=== PATIENT | female | born 1995 | race Caucasian/White ===

== ENCOUNTER → 2016-12-15 | Outpatient (CLI) | payer BC, MEDICAID ==
[~2016-12-15] MED LIST: ACET1TAB43 PO; CHOL200012 PO; FERR-84 PO; IBUP-1773 PO; IOHEXOL 350 MG/ML 100 ML (OMNIPAQUE 350) VIAL IV ONE; MAGN200T PO; MULT1CAP27 PO; NS 100 ML (IVPB) BAG IV ONE; PNV91TAB3 PO; POTA10CA43 PO
--- NOTE | 2016-12-15 16:23 | Diagnostic Imaging Report ---
PROCEDURE: CT abdomen and pelvis with contrast, rule out appendicitis. TECHNIQUE: Multiple contiguous axial images were obtained through the abdomen and pelvis after the administration of intravenous contrast. INDICATION: Right lower quadrant pain. Nausea. 100 mL of Omnipaque 350 is administered intravenously. FINDINGS: The lung bases appear clear. The liver, the gallbladder, the pancreas, and the adrenal glands appear unremarkable. The spleen is at the upper limits of normal in size. The kidneys have symmetric enhancement and contrast excretion with no hydronephrosis. The uterus and adnexa appear grossly unremarkable. There is a small amount of free pelvic fluid in the pelvis, however. There is no bowel obstruction. The proximal aspect of the appendix is seen. It is normal in caliber with no significant inflammation. The distal aspect of the appendix, however, is inseparable from the adjacent bowel loops and not well evaluated. Minimal prominence of mesenteric lymph nodes, however, is seen. The osseous structures demonstrate sacralization of the transverse processes of L5. IMPRESSION: 1. There is a small amount of fluid seen in the pelvis. 2. The proximal aspect of the appendix is seen and appears normal. Its distal aspect is inseparable from adjacent small bowel loop and therefore is not well evaluated. There is, however, no adjacent inflammatory changes or fluid collection. Correlate clinically. 3. Nonspecific minimally prominent right lower quadrant mesenteric lymph nodes. Dictated by: Dictated on workstation # [id number]
== END ==
LOC: RAD 15:12
PROVIDERS: ATTEND Internal Medicine
DX: R59.0 Localized enlarged lymph nodes (principal); R10.31 Right lower quadrant pain
CPT/HCPCS: 74177

== ENCOUNTER → 2019-06-17 | Outpatient (CLI) | payer BC ==
[~2019-06-17] MED LIST changes: -IOHEXOL 350 MG/ML 100 ML (OMNIPAQUE 350) VIAL IV ONE; -NS 100 ML (IVPB) BAG IV ONE
--- NOTE | 2019-06-17 12:52 | Diagnostic Imaging Report ---
PROCEDURE: US OB SINGLE FETUS <14 WKS. TECHNIQUE: Multiple real-time grayscale images were obtained over the gravid uterus in various projections. INDICATION: Vaginal bleeding for 8 hours. FINDINGS: There are two intrauterine gestational sacs containing poles consistent with twin . Twin A has crown-rump length measurement of 1.8 cm consistent with 8 weeks 3 days. heart rate was recorded at 181 BPM. Twin B demonstrates a crown-rump length measurement of 1.9 cm consistent with 8 weeks 3 days. Heart rate was recorded at 169 BPM. No dante-gestational sac hemorrhage is detected. There is a left adnexal cyst measuring approximately 3.1 cm in size. There is no free fluid. IMPRESSION: 1. Twin live intrauterine approximately 8 weeks 3 days. Estimated date of confinement sonographically is 01/24/2020. No complicating features are seen. Dictated by: Dictated on workstation # [id number]
== END ==
LOC: RAD 10:50
PROVIDERS: ATTEND Obstetrics & Gynecology
DX: O46.91 Antepartum hemorrhage, unspecified, first trimester (principal); Z3A.08 8 weeks gestation of pregnancy
CPT/HCPCS: 76801; 76802

== ENCOUNTER 2019-12-20 17:41 | Outpatient (CLI) | payer BC, MEDICAID ==
[2019-12-20] VITALS (10 sets, daily range): BP systolic 132–147; BP diastolic 87–97
[~2019-12-20] VITALS: Ht 167.7 cm; Wt 99.7 kg
--- NOTE | 2019-12-20 17:50 | NUR ---
BRANDI PUGH presented to unit via AMBULATORY from ED, accompanied by S/O, with c/o PRE ECLAMPSIA, HEADACHE, LIGHT SENSITIVITY @ 35 WKS GESTATION. BRANDI PUGH weighed, gowned, voided, and to bed. EFHM and TOCO applied, VS taken. BRANDI PUGH oriented to bed controls, call light, TV, heat, and A/C controls.
--- NOTE | 2019-12-20 18:15 | NUR ---
ASSESSMENT COMPLETED. DTRS SLIGHT BRISK BILATERALLY. STATES SAW DR. BUENROSTRO YESTERDAY FOR DR. SANDY. LABS DONE AND BP ELEVATED IN OFFICE. C/O HEADACHE SINCE 0900 YESTERDAY. 2+ PITTING EDEMA NOTED IN LOWER EXTREMITIES. NO OBVIOUS FACIAL SWELLING.
--- NOTE | 2019-12-20 18:31 | NUR ---
DR. SILVEIRA NOTIFIED OF PT'S ARRIVAL, TWIN AT 35 WEEKS 1 DAY, COMPLAINT OF HEADACHE, VS WITH ELEVATED BP, REACTIVE FHR TRACING, EDEMA AND SLIGHTLY BRISK DTRS.
[2019-12-20] MEDS ORDERED: ACET/BUTAL/CAFF (FIORICET) TAB PO ONE ×2 (18:45→19:01)
--- NOTE | 2019-12-20 18:45 | NUR ---
LAB NOTIFIED OF NEED TO DRAW BLOOD FOR LABS.
[2019-12-20 18:55] LABS: BILIRUBIN,URINE NEGATIVE (NEGATIVE); CLARITY,URINE CLEAR; COLOR,URINE YELLOW; GLUCOSE, URINE (UA) NEGATIVE (NEGATIVE); KETONES,URINE 1+ (NEGATIVE); LEUKOCYTE ESTERASE ,URINE 2+ (NEGATIVE); NITRITE,URINE NEGATIVE (NEGATIVE); PROTEIN,URINE TRACE (NEGATIVE)
[2019-12-20 19:03] LABS: BACTERIA,URINE MODERATE /HPF; SQUAMOUS EPITHELIAL CELL,UR 25-50 /HPF
--- NOTE | 2019-12-20 19:07 | NUR ---
FIORICET GIVEN P.O. PER DR. GIANG FOR C/O HEADACHE.
--- NOTE | 2019-12-20 19:10 | NUR ---
LAB HERE TO DRAW BLOOD.
[2019-12-20 19:25] LABS: BASOPHILS % (AUTO) 0 % (0-10); EOSINOPHILS # (AUTO) 0.2 10^3/uL (0.0-0.3); EOSINOPHILS % (AUTO) 2 % (0-10); HEMATOCRIT 34 % (35-52); LYMPHOCYTES # (AUTO) 1.9 X 10^3 (1.0-4.0); LYMPHOCYTES % (AUTO) 17 % (12-44); MEAN CORPUSCULAR HEMOGLOBIN 26 PG (25-34); MEAN CORPUSCULAR HGB CONC 32 G/DL (32-36); MEAN CORPUSCULAR VOLUME 81 FL (80-99); MEAN PLATELET VOLUME 10.4 FL (7.4-10.4); MONOCYTES # (AUTO) 0.7 X 10^3 (0.0-1.0); MONOCYTES % (AUTO) 6 % (0-12); NEUTROPHILS # (AUTO) 8.6 X 10^3 (1.8-7.8); NEUTROPHILS % (AUTO) 75 % (42-75); PLATELET COUNT 284 10^3/uL (130-400); RED CELL DISTRIBUTION WIDTH 17.5 % (10.0-14.5); WHITE BLOOD COUNT 11.5 10^3/uL (4.3-11.0)
[2019-12-20 19:36] LABS: CHLORIDE 109 MMOL/L (98-107)
[2019-12-20 19:37] LABS: POTASSIUM 3.6 MMOL/L (3.6-5.0); SODIUM 138 MMOL/L (135-145)
[2019-12-20 19:38] LABS: CALCIUM 8.7 MG/DL (8.5-10.1)
[2019-12-20 19:39] LABS: GLUCOSE 93 MG/DL (70-105); TOTAL PROTEIN 6.1 GM/DL (6.4-8.2)
[2019-12-20 19:40] LABS: CARBON DIOXIDE 21 MMOL/L (21-32)
[2019-12-20 19:41] LABS: BILIRUBIN,TOTAL 0.3 MG/DL (0.1-1.0)
[2019-12-20 19:42] LABS: ALKALINE PHOSPHATASE 118 U/L (40-136)
[2019-12-20 19:43] LABS: CREATININE SERUM 0.94 MG/DL (0.60-1.30); GFR ESTIMATED > 60
[2019-12-20 19:44] LABS: BUN/CREATININE RATIO 7
[2019-12-20 19:45] LABS: ALANINE AMINOTRANSFERASE 11 U/L (0-55)
[2019-12-20 19:46] LABS: URIC ACID 7.2 MG/DL (2.6-7.2)
[2019-12-20] MEDS ORDERED: ASCO-262 PO (20:06)
[2019-12-20] MEDS ORDERED: BUTA1CAP42 PO (20:09)
--- NOTE | 2019-12-20 20:20 | NUR ---
D/C instructions given & explained, again reviewed bedrest w/pt & instructed to call office Monday, pt. verbalized understanding & signed, copy of D/C to pt. Rx called to [facility] per pt's request. Pt. left [facility] via W/C per this RN & SO, to home via private vehicle.
--- NOTE | 2019-12-24 09:50 | Physician Query-Final Dx ---
Clinic Account Progress/Dx Physician Query: Please give diagnosis Please include # weeks gestation Date of Service Dec 20, 2019 at 17:41 JORDYN CALDWELL Dec 24, 2019 09:50
== END 2019-12-20 20:20 | disposition home or self-care (01) ==
LOC: WSo 17:41 → LDRP 17:41 → WSo 20:20
PROVIDERS: ATTEND Obstetrics & Gynecology
DX: Z34.90 Encounter for supervision of normal pregnancy, unspecified, unspecified trimester (principal); Z3A.00 Weeks of gestation of pregnancy not specified
CPT/HCPCS: 80053; 81000; 82570; 84156; 84550; 85025; 87088; G0463; 36415; 99213

== ENCOUNTER 2019-12-24 05:38 | Inpatient (IN) | payer BC, MEDICAID ==
[~2019-12-24] VITALS: Ht 167.7 cm; Wt 99.9 kg
[2019-12-24] VITALS (15 sets, daily range): BP systolic 0–186; BP diastolic 0–110
[~2019-12-24 05:38] MED LIST changes: +ASCO-262 PO; +BUTA1CAP42 PO
--- NOTE | 2019-12-24 05:47 | NUR ---
BRANDI PUGH presented to unit via wheelchair from ED, accompanied by s.o., with c/o CONTRACTIONS. BRANDI PUGH weighed, gowned, voided, and to bed. EFHM and TOCO applied, VS taken. BRANDI PUGH oriented to bed controls, call light, TV, heat, and A/C controls.
[2019-12-24 06:21] LABS: BILIRUBIN,URINE NEGATIVE (NEGATIVE); CLARITY,URINE SL CLOUDY; COLOR,URINE YELLOW; GLUCOSE, URINE (UA) NEGATIVE (NEGATIVE); KETONES,URINE NEGATIVE (NEGATIVE); LEUKOCYTE ESTERASE ,URINE 2+ (NEGATIVE); NITRITE,URINE NEGATIVE (NEGATIVE); PH,URINE 5.5 (5-9); PROTEIN,URINE 1+ (NEGATIVE)
[2019-12-24] MEDS ORDERED: LABETALOL 200 MG (NORMODYNE) TAB PO ONE ×2 (06:24→06:30)
[2019-12-24 06:47] LABS: RBC,URINE 0-2 /HPF
[2019-12-24 06:48] LABS: BACTERIA,URINE MODERATE /HPF; WBC,URINE 25-50 /HPF
[2019-12-24 07:07] LABS: BASOPHILS % (AUTO) 0 % (0-10); EOSINOPHILS # (AUTO) 0.3 10^3/uL (0.0-0.3); EOSINOPHILS % (AUTO) 2 % (0-10); HEMATOCRIT 32 % (35-52); HEMOGLOBIN 10.5 G/DL (11.5-16.0); LYMPHOCYTES # (AUTO) 2.4 X 10^3 (1.0-4.0); LYMPHOCYTES % (AUTO) 18 % (12-44); MEAN CORPUSCULAR HEMOGLOBIN 26 PG (25-34); MEAN CORPUSCULAR HGB CONC 32 G/DL (32-36); MEAN CORPUSCULAR VOLUME 80 FL (80-99); MEAN PLATELET VOLUME 10.8 FL (7.4-10.4); MONOCYTES # (AUTO) 0.8 X 10^3 (0.0-1.0); MONOCYTES % (AUTO) 6 % (0-12); NEUTROPHILS % (AUTO) 74 % (42-75); PLATELET COUNT 272 10^3/uL (130-400); RED CELL DISTRIBUTION WIDTH 17.1 % (10.0-14.5); WHITE BLOOD COUNT 13.5 10^3/uL (4.3-11.0)
[2019-12-24 07:28] LABS: ALANINE AMINOTRANSFERASE 12 U/L (0-55); ALKALINE PHOSPHATASE 126 U/L (40-136); BILIRUBIN,TOTAL 0.2 MG/DL (0.1-1.0); BUN/CREATININE RATIO 8; CALCIUM 8.6 MG/DL (8.5-10.1); CARBON DIOXIDE 17 MMOL/L (21-32); CHLORIDE 111 MMOL/L (98-107); CREATININE SERUM 0.73 MG/DL (0.60-1.30); GFR ESTIMATED > 60; GLUCOSE 82 MG/DL (70-105); POTASSIUM 3.4 MMOL/L (3.6-5.0); SODIUM 139 MMOL/L (135-145); TOTAL PROTEIN 6.2 GM/DL (6.4-8.2); URIC ACID 7.3 MG/DL (2.6-7.2)
[2019-12-24] MEDS: BETAMETHASONE ACE/NA PHOS 6 MG/ML (CELESTONE SOLUSPAN) IM SCH (09:16)
--- NOTE | 2019-12-24 09:27 | History & Physical-OB ---
OB - Chief Complaint & HPI Date/Time Date of Admission: Date of Admission: Date seen by a Provider: Dec 24, 2019 Time Seen by a Provider: 08:00 Chief Complaint/History OB-Reason for Admission/Chief: Hx : 2 Hx Para: 1 Expected Date of Delivery: Jan 23, 2020 Gestational Age in Weeks: 35 Gestational Age in Days: 5 Other reason for admission: Patient admitted for uterine contractions, WILKES, and BP of 180s/100s. She had a standing diagnosis of mild preE, but has met severe criteria at time of admission Admission Nurse Assessment Rev: Yes History of Labs GBS neg Allergies and Home Medications Allergies Coded Allergies: No Known Drug Allergies (Unverified , 04/04/11) Home Medications Ascorbate Calcium 500 Mg Tablet, 500 MG PO DAILY, (Reported) Butalbit/Acetamin/Caff/Codeine 1 Each Capsule, 1 EACH PO Q6H Prescribed by: ANGELIQUE ASTORGA on 12/20/192008 Ferrous Sulfate 325 Mg Tablet, 325 MG PO DAILY, (Reported) Pnv95/Ferrous Fumarate/FA 1 Each Tablet, 1 EACH PO DAILY, (Reported) Patient Home Medication List Home Medication List Reviewed: Yes OB - History Hx of Present Care: Yes Ultrasounds: Normal mid trimester US (twin gestation di-di) Obstetrical Complications: Pre-eclampsia, Other (Di/Di Twin gestation) Medical Complications: None Obstetrical History Hx : 2 Hx Para: 1 Hx Total # of Abortions (Spona: 0 Delivery History Hx Blood Disorders: No Adverse Rxn to Tranfusion: No Patient Past Medical History n/a Social History/Family History Alcohol Use: Denies Use Recreational Drug Use: No 2nd Hand Smoke Exposure: No Immunizations Hepatitis A: No Hepatitis B: No Tetanus Booster (TDap): Unknown OB - Admission Exam Physical Exam Vitals: Vital Signs 12/24/19 12/24/19 07:04 07:19 Temp 37.2 Pulse 83 Resp 18 B/P (MAP) 148/93 (111) Pulse Ox 98 O2 Delivery Room Air HEENT: NCAT Heart: Rhythm Normal Lungs: Clear Abdomen: Gravid Extremities: Normal Reflexes: Normal Cervical Dilatation: 1cm Effacement: 75% Station: -1 Membranes: Intact Heart Rate: 130's Accelerations: Accelerations Present Decelerations: No Decelerations Short Term Variability: Present Snf Variability: Average (6-25) Contractions on Admission: < 5 Minutes Apart Intensity: Mild Labs Laboratory Tests Test 12/24/19 06:00 12/24/19 07:03 Range/Units Urine Color YELLOW Urine Clarity SL CLOUDY Urine pH 5.5 5-9 Urine Specific [place] <=1.005 1.016-1.022 Urine Protein 35 H 6-12 MG/DL Urine Glucose (UA) NEGATIVE NEGATIVE Urine Ketones NEGATIVE NEGATIVE Urine Nitrite NEGATIVE NEGATIVE Urine Bilirubin NEGATIVE NEGATIVE Urine Urobilinogen 0.2 < = 1.0 MG/DL Urine Leukocyte Esterase 2+ H NEGATIVE Urine RBC (Auto) 1+ H NEGATIVE Urine RBC 0-2 /HPF Urine WBC 25-50 H /HPF Urine Squamous Epithelial Cells 10-25 H /HPF Urine Crystals NONE /LPF Urine Bacteria MODERATE H /HPF Urine Casts NONE /LPF Urine Mucus NEGATIVE /LPF Urine Culture Indicated YES Urine Creatinine 27 L 30-125 MG/DL Urine Protein/Creatinine Ratio 1.30 White Blood Count 13.5 H 4.3-11.0 10^3/uL Red Blood Count 4.04 L 4.35-5.85 10^6/uL Hemoglobin 10.5 L 11.5-16.0 G/DL Hematocrit 32 L 35-52 % Mean Corpuscular Volume 80 80-99 FL Mean Corpuscular Hemoglobin 26 25-34 PG Mean Corpuscular Hemoglobin Concent 32 32-36 G/DL Red Cell Distribution Width 17.1 H 10.0-14.5 % Platelet Count 272 130-400 10^3/uL Mean Platelet Volume 10.8 H 7.4-10.4 FL Neutrophils (%) (Auto) 74 42-75 % Lymphocytes (%) (Auto) 18 12-44 % Monocytes (%) (Auto) 6 0-12 % Eosinophils (%) (Auto) 2 0-10 % Basophils (%) (Auto) 0 0-10 % Neutrophils # (Auto) 10.0 H 1.8-7.8 X 10^3 Lymphocytes # (Auto) 2.4 1.0-4.0 X 10^3 Monocytes # (Auto) 0.8 0.0-1.0 X 10^3 Eosinophils # (Auto) 0.3 0.0-0.3 10^3/uL Basophils # (Auto) 0.0 0.0-0.1 10^3/uL Sodium Level 139 135-145 MMOL/L Potassium Level 3.4 L 3.6-5.0 MMOL/L Chloride Level 111 H 98-107 MMOL/L Carbon Dioxide Level 17 L 21-32 MMOL/L Anion Gap 11 5-14 MMOL/L Blood Urea Nitrogen 6 L 7-18 MG/DL Creatinine 0.73 0.60-1.30 MG/DL Estimat Glomerular Filtration Rate > 60 BUN/Creatinine Ratio 8 Glucose Level 82 70-105 MG/DL Uric Acid 7.3 H 2.6-7.2 MG/DL Calcium Level 8.6 8.5-10.1 MG/DL Corrected Calcium 9.4 8.5-10.1 MG/DL Total Bilirubin 0.2 0.1-1.0 MG/DL Aspartate Amino Transf (AST/SGOT) 20 5-34 U/L Alanine Aminotransferase (ALT/SGPT) 12 0-55 U/L Alkaline Phosphatase 126 40-136 U/L Total Protein 6.2 L 6.4-8.2 GM/DL Albumin 3.0 L 3.2-4.5 GM/DL OB - Assessment/Plan/Diagnosis Assessment Admission Dx 24 yo @ 35.5 Di Di Twin gestation Uterine contractions Severe PreE GBS neg Admission Status: Inpatient Order (span 2 midnights) Reason for Inpatient Admission: Severe Pre E at 35.5 weeks Plan Other Plan Admission with BMZ given. Labetalol 200 mg po given with good BP response Will continue to Monitor if stable will await delivery until 36 weeks or 48 hours BPP/ US ordered this AM- if WNL advance to regular diet. TD BUENROSTRO DO Dec 24, 2019 9:27 am
[2019-12-24] MEDS ORDERED: morphine INJ 10 MG/ML 1ML (SYR OR VIAL) ONE ×2 (10:14→18:47)
[2019-12-24] MEDS ORDERED: morphine INJ 10 MG/ML 1ML (SYR OR VIAL) IVP ONE ×2 (10:15→19:00)
--- NOTE | 2019-12-24 13:56 | Diagnostic Imaging Report ---
INDICATION: Check growth. TECHNIQUE: Multiple real-time grayscale images were obtained over the gravid uterus. COMPARISON: 06/17/2019. FINDINGS: The prior exam of 06/17/2019 noted twin living fetuses approximately 8 weeks 3 days gestation. On this exam, there are again twin living fetuses. Twin A is on the maternal right and in cephalic presentation while twin B is on the maternal left and also in cephalic presentation. heart motion for twin A was noted and a rate of 129 BPM is recorded. The heart rate for twin B is 134 BPM. There are no abnormalities identified. The placenta for twin A is posterior while placenta for twin B is posterior and to the left. There is no previa. Amniotic fluid volume is within normal limits. There is a membrane in place. The growth parameters are fairly uniform and have progressed as expected since the prior exam. Twin A does measure slightly larger than twin B. IMPRESSION: 1. There are twin living fetuses approximately 35 weeks 5 days gestation +/- 1 week. The EDC remains January 24, 2020. 2. There are no abnormalities identified. 3. The growth parameters have progressed as expected since the prior study. Biometrical measurements are as follows: Biparietal 8.71 cm, age 35 weeks 2 days. Head circumference 31.94 cm, age 36 weeks 0 days. Abdominal circumference 30.06 cm, age 34 weeks 1 days. Femur length 6.65 cm, age 34 weeks 2 days. Sonographic estimate age: 35 weeks 0 days. Sonographic estimated date of delivery: 01/28/20. Estimated Weight: 2420 gm (+/- 353 gm). LMP percentile: 17%. heart rate: 129 beats per minute. number: 1 of 2. Dictated by: Dictated on workstation # [id number]
[2019-12-24] MEDS: CATHETER FLUSH 10 ML SYR IV SCH (15:48)
[2019-12-24] MEDS ORDERED: D5 LR IV SOLUTION 1,000 ML IV ONE (18:48)
[2019-12-24] MEDS: D5 LR IV SOLUTION 1,000 ML IV SCH (18:56)
[2019-12-24] MEDS: LABETALOL 200 MG (NORMODYNE) TAB PO SCH (20:42)
[2019-12-25] VITALS (14 sets, daily range): BP systolic 116–147; BP diastolic 72–101
--- NOTE | 2019-12-25 08:00 | NUR ---
Dr Flores to bedside and reviewed plan of care with pt and mother.
--- OUTSIDE RECORDS SUMMARY | 2019-12-25 08:37 | XMS REPORT | CCD ---
Author Author Risa Sauceda D.O. Organization [facility] Address [address] [place] [address] Phone Care Team Providers Care Collections Curator Name Role Phone PP Unavailable CCM Unavailable Summary Purpose Interface Exchange Insurance Providers Payer name Policy type / Coverage type Covered democrat ID Effective Begin Date Effective End Date Blue Cross Blue Shield Blue Cross/Bl ue Shield [id number] Unknown Unk nown Family History Family History data not found Social History Social History Element Codes Description Effective Dates Tobacco history SNOMED CT: 904214203 Nonsmoker 01/12/2011 Allergies, Adverse Reactions, Alerts Substance Reaction Codes Entered Date Inactivated Date Status * NO KNOWN DRUG FARHAD RGIES Unknown 01/12/2011 No Inactive Date Active Past Medical History Illness Codes Condition Status Onset Date Resolved Date TEST-POSITIVE ICD-9: V72.42 Active 03/22/2012 Unknown ASTHMA NOS ICD-9: 493.90 Active 12/27/2011 Unknow n URINARY TRACT INFECTION ICD-9: 599.0 Active 10/05/2011 Unknown Acne ICD-9: 706.1 Active 01/12/2011 Unknow n ROUTINE CHILD HEALTH EXAM ICD-9: V20.2 Active 12/27 Unknown Problems Condition Codes Effectiv e Dates Condition Status TEST-POSITIVE ICD-9: V72.42 03/22/2012 Active ASTHMA NOS ICD-9: 493.90 12/27/2011 Active URINARY TRACT INFECTION ICD-9: 599.0 10/05/2011 Active Acne ICD-9: 706.1 01/12/2011 Active ROUTINE CHILD HEALTH EXAM ICD-9: V20.2 01/12/2011 Active Medications Medication Codes Instruc tions Start Date Stop Date Sta tus Fill Instructions Cleocin T 1 % Topica l Gel RxNorm: 537321 1 Application TOP BID 01/12/2011 02/10/2011 Inactive generic ok albuterol sulfate HF A 90 mcg/actuation Aerosol Inhaler RxNorm: 4429597 1 INH Q4H No Start Date Active Medication Administered No Medication Administered data Immunizations No Immunization data Assessments Condition Codes Effectiv e Dates TEST-POSITIVE ICD-9: V72.42 03/22/2012 ROUTINE CHILD HEALTH EXAM ICD-9: V20.2 12/27/2011 ASTHMA NOS ICD-9: 493.90 12/27/2011 URINARY TRACT INFECTION ICD-9: 599.0 10/05/2011 Acne ICD-9: 706.1 2010 Reason For Visit Reason For Visit Effective Dates Notes 03/22/2012 has had positive urine tests, wants to discuss options vs pill, LMP 02/01/12 Annual Checkup 12/27/2011 painful urination 10/05/2011 Annual Checkup 01/12/2011 Sports physical Results No Results data Review of Systems System Result Effective Dates Genitourinary/Nephrology 03/22/2012 Constitutional No fever 12/27/2011 Constitutional No recent illness 12/27/2011 Constitutional No weight gain/obesity 12/27/2011 Constitutional No weight loss 12/27/2011 Ears/Nose/Throat/Neck No headache 12/27/2011 Ears/Nose/Throat/Neck No nasal discharge 12/27/2011 Ears/Nose/Throat/Neck nasal allergies 12/27/2011 Ears/Nose/Throat/Neck sinus congestion 12/27/2011 Ears/Nose/Throat/Neck No taste change 12/27/2011 Ears/Nose/Throat/Neck No sore throat 12/27/2011 Cardiovascular No hypertension 12/27/2011 Cardiovascular No cardiac murmur 12/27/2011 Respiratory asthma 12/26 Respiratory No cough Gastrointestinal No abdominal pain 12/27/2011 Genitourinary/Nephrology No menstrua l irregularity 12/27/2011 Musculoskeletal No low back pain 12/27/2011 Musculoskeletal No bone pain 12/27/2011 Musculoskeletal No neck pain 12/27/2011 Dermatologic acne rosacea 12/27/2011 Neurologic No alteration of consciousness 12/27/2011 Neurologic No seizure Psychiatric No alcohol abuse 12/27/2011 Psychiatric No drug abuse 12/27/2011 Psychiatric No stress Psychiatric No depression 12/27/2011 Endocrine No diabetes mellitus type 1 12/27/2011 Endocrine No diabetes mellitus type 2 12/27/2011 Allergy/Immunology No food allergy 12/27/2011 Allergy/Immunology No angioedema 12/27/2011 Allergy/Immunology No anaphylactoid reaction 12/27/2011 Constitutional No fever 01/12/2011 Constitutional No recent illness 01/12/2011 Ears/Nose/Throat/Neck No headache 01/12/2011 Ears/Nose/Throat/Neck nasal allergies 01/12/2011 Ears/Nose/Throat/Neck No nasal discharge 01/12/2011 Ears/Nose/Throat/Neck No otalgia 01/12/2011 Ears/Nose/Throat/Neck No sore throat 01/12/2011 Cardiovascular No cardiac murmur 01/12/2011 Cardiovascular No hypertension 01/12/2011 Cardiovascular No syncope 01/12/2011 Respiratory No cigarette smoking 01/12/2011 Respiratory No cough Respiratory asthma 01/12 Gastrointestinal No diarrhea 01/12/2011 Gastrointestinal No constipation 01/12/2011 Gastrointestinal No abdominal pain 01/12/2011 Gastrointestinal No nausea 01/12/2011 Gastrointestinal No vomiting 01/12/2011 Genitourinary/Nephrology No menstrua l irregularity 01/12/2011 Musculoskeletal No back pain 01/12/2011 Musculoskeletal No low back pain 01/12/2011 Musculoskeletal No joint complaint 01/12/2011 Dermatologic acne vulgaris 01/12/2011 Neurologic No alteration of consciousness 01/12/2011 Psychiatric No anxiety 0 01/12/2011 Psychiatric No stress Psychiatric No depression 01/12/2011 Psychiatric No alcohol abuse 01/12/2011 Psychiatric No drug abuse 01/12/2011 Endocrine No diabetes mellitus type 1 01/12/2011 Endocrine No diabetes mellitus type 2 01/12/2011 Allergy/Immunology No anaphylactoid reaction 01/12/2011 Allergy/Immunology No angioedema 01/12/2011 Allergy/Immunology No food allergy 01/12/2011 Physical Exam Exam Name System Name It em Name Status Result Effective Dates Notes Full Exam - General Constitutional general appearance Overall: well nourished 03/22/2012 None Full Exam - General Constitutional general appearance Overall: well developed 03/22/2012 None Full Exam - General Constitutional general appearance Overall: in no acute distress 03/22/2012 None Full Exam - General Neurologic mental status Overall: alert 2 None Full Exam - General Neurologic mental status Overall: oriented 03/22/2012 None Full Exam - General Psychiatric mood and affect Overall: normal mood and affect 03/22/2012 None Full Exam - General Lymphatic neck nodes Overall: anterior cervical chain maryam ign 12/27/2011 None Full Exam - General Lymphatic neck nodes Overall: posterior cervical chain be nign 12/27/2011 None Full Exam - General Musculoskeletal head and neck Overall: head atraumatic 12/27/2011 None Full Exam - General Musculoskeletal head and neck Overall: cervical spine benign 12/27/2011 None Full Exam - General Musculoskeletal digits and nails Overall: no clubbing 12/27/2011 None Full Exam - General Musculoskeletal digits and nails Overall: digits benign 12/27/2011 None Full Exam - General Musculoskeletal right upper extremity Overall: right shoulder benign 12/27/2011 None Full Exam - General Musculoskeletal right upper extremity Overall: right elbow benign 12/27/2011 None Full Exam - General Musculoskeletal right upper extremity Overall: right wrist benign 12/27/2011 None Full Exam - General Musculoskeletal right upper extremity Overall: full strength in RUE 12/27/2011 None Full Exam - General Musculoskeletal right upper extremity Overall: normal RUE bulk and tone 12/27/2011 None Full Exam - General Musculoskeletal left upper extremity Overall: normal left shoulder 12/27/2011 None Full Exam - General Musculoskeletal left upper extremity Overall: normal left elbow 12/27/2011 None Full Exam - General Musculoskeletal left upper extremity Overall: normal left wrist 12/27/2011 None Full Exam - General Musculoskeletal left upper extremity Overall: full strength in LUE 12/27/2011 None Full Exam - General Musculoskeletal left upper extremity Overall: normal LUE bulk and tone 12/27/2011 None Full Exam - General Musculoskeletal right lower extremity Overall: right knee benign 12/27/2011 None Full Exam - General Musculoskeletal right lower extremity Overall: right ankle benign 12/27/2011 None Full Exam - General Musculoskeletal right lower extremity Overall: right foot benign 12/27/2011 None Full Exam - General Musculoskeletal right lower extremity Overall: full strength in RLE 12/27/2011 None Full Exam - General Musculoskeletal right lower extremity Overall: normal RLE bulk and tone 12/27/2011 None Full Exam - General Musculoskeletal left lower extremity Overall: left knee benign 12/27/2011 None Full Exam - General Musculoskeletal left lower extremity Overall: left ankle benign 12/27/2011 None Full Exam - General Musculoskeletal left lower extremity Overall: left foot benign 12/27/2011 None Full Exam - General Musculoskeletal left lower extremity Overall: full strength in LLE 12/27/2011 None Full Exam - General Musculoskeletal left lower extremity Overall: normal LLE bulk and tone 12/27/2011 None Full Exam - General Musculoskeletal spine, ribs and pelvis Overall: spine benign 12/27/2011 None Full Exam - General Musculoskeletal spine, ribs and pelvis Overall: right hip benign 12/27/2011 None Full Exam - General Musculoskeletal spine, ribs and pelvis Overall: left hip benign 12/27/2011 None Full Exam - General Musculoskeletal gait and station Overall: normal gait 12/27/2011 None Full Exam - General Musculoskeletal gait and station Overall: normal station 12/27/2011 None Full Exam - General Psychiatric orientation/consciousness Overall: oriented to person, place and time 12/27/2011 None Full Exam - General Neurologic cranial nerves Overall: cranial nerves 1-12 intact 12/27/2011 grossly intact (Cranial n erve 1 not tested) Full Exam - General Constitutional general appearance Overall: well nourished 12/27/2011 None Full Exam - General Constitutional general appearance Overall: well developed 12/27/2011 None Full Exam - General Constitutional general appearance Overall: in no acute distress 12/27/2011 None Full Exam - General Eyes conjunctiva/eyelids Overall: conjunctiva clear 12/27/2011 None Full Exam - General Eyes conjunctiva/eyelids Overall: cornea clear 12/27/2011 None Full Exam - General Eyes conjunctiva/eyelids Overall: eyelids normal 12/27/2011 None Full Exam - General Eyes pupils and irises Overall: pupils equal, round, reacti ve to light and accomodation 12/27/2011 None Full Exam - General Ears/Nose/Throat otoscopic exam Overall: external auditory canals clear 12/27/2011 None Full Exam - General Ears/Nose/Throat otoscopic exam Overall: tympanic membranes clear 12/27/2011 None Full Exam - General Ears/Nose/Throat lips/teeth/gingiva Overall: benign lips 12/27/2011 None Full Exam - General Ears/Nose/Throat lips/teeth/gingiva Overall: normal dentition 12/27/2011 None Full Exam - General Ears/Nose/Throat lips/teeth/gingiva Overall: benign gingiva 12/27/2011 None Full Exam - General Ears/Nose/Throat oral cavity/pharynx/larynx Overall: oropharyngeal mucosa clear 12/27/2011 None Full Exam - General Neck thyroid Overall: normal size None Full Exam - General Neck thyroid Overall: normal consistency 12/27/2011 None Full Exam - General Neck thyroid Overall: nontender 12/26 None Full Exam - General Respiratory auscultation Overall: breath sounds clear bilater ally 12/27/2011 None Full Exam - General Respiratory respiratory effort/rhythm Overall: no retractions 12/27/2011 None Full Exam - General Respiratory respiratory effort/rhythm Overall: normal rate 12/27/2011 None Full Exam - General Cardiovascular auscultation of heart Overall: regular rate 12/27/2011 None Full Exam - General Cardiovascular auscultation of heart Overall: normal heart sounds 12/27/2011 None Full Exam - General Cardiovascular auscultation of heart Overall: no murmurs 12/27/2011 sitting or supine Full Exam - General Abdomen abdominal exam Overall: no tenderness 12/27/2011 None Full Exam - General Abdomen abdominal exam Overall: soft 12/27/2011 None Full Exam - General Abdomen abdominal exam Overall: no masses 12/27/2011 None Full Exam - General Abdomen abdominal exam Overall: normal bowel sounds 12/27/2011 None Full Exam - General Constitutional general appearance Overall: well nourished 01/12/2011 None Full Exam - General Constitutional general appearance Overall: well developed 01/12/2011 None Full Exam - General Constitutional general appearance Overall: in no acute distress 01/12/2011 None Full Exam - General Eyes conjunctiva/eyelids Overall: conjunctiva clear 01/12/2011 None Full Exam - General Eyes conjunctiva/eyelids Overall: cornea clear 01/12/2011 None Full Exam - General Eyes conjunctiva/eyelids Overall: eyelids normal 01/12/2011 None Full Exam - General Eyes pupils and irises Overall: pupils equal, round, reacti ve to light and accomodation 01/12/2011 None Full Exam - General Ears/Nose/Throat otoscopic exam Overall: external auditory canals clear 01/12/2011 None Full Exam - General Ears/Nose/Throat otoscopic exam Overall: tympanic membranes clear 01/12/2011 None Full Exam - General Ears/Nose/Throat lips/teeth/gingiva Overall: benign lips 01/12/2011 None Full Exam - General Ears/Nose/Throat lips/teeth/gingiva Overall: normal dentition 01/12/2011 None Full Exam - General Ears/Nose/Throat lips/teeth/gingiva Overall: benign gingiva 01/12/2011 None Full Exam - General Ears/Nose/Throat oral cavity/pharynx/larynx Overall: oral mucosa clear 01/12/2011 None Full Exam - General Ears/Nose/Throat oral cavity/pharynx/larynx Overall: tonsils benign 01/12/2011 None Full Exam - General Ears/Nose/Throat oral cavity/pharynx/larynx Overall: oropharyngeal mucosa clear 01/12/2011 None Full Exam - General Neck thyroid Overall: normal size None Full Exam - General Neck thyroid Overall: normal consistency 01/12/2011 None Full Exam - General Neck thyroid Overall: nontender 01/12 None Full Exam - General Respiratory auscultation Overall: breath sounds clear bilater ally 01/12/2011 None Full Exam - General Respiratory respiratory effort/rhythm Overall: no retractions 01/12/2011 None Full Exam - General Respiratory respiratory effort/rhythm Overall: normal rate 01/12/2011 None Full Exam - General Cardiovascular auscultation of heart Overall: regular rate 01/12/2011 None Full Exam - General Cardiovascular auscultation of heart Overall: normal heart sounds 01/12/2011 None Full Exam - General Abdomen abdominal exam Overall: no tenderness 01/12/2011 None Full Exam - General Abdomen abdominal exam Overall: no masses 01/12/2011 None Full Exam - General Abdomen abdominal exam Overall: soft 01/12/2011 None Full Exam - General Abdomen abdominal exam Overall: normal bowel sounds 01/12/2011 None Full Exam - General Lymphatic neck nodes Overall: anterior cervical chain maryam ign 01/12/2011 None Full Exam - General Lymphatic neck nodes Overall: posterior cervical chain be nign 01/12/2011 None Full Exam - General Musculoskeletal head and neck Overall: head atraumatic 01/12/2011 None Full Exam - General Musculoskeletal digits and nails Overall: no clubbing 01/12/2011 None Full Exam - General Musculoskeletal right upper extremity Overall: right shoulder benign 01/12/2011 None Full Exam - General Musculoskeletal right upper extremity Overall: right elbow benign 01/12/2011 None Full Exam - General Musculoskeletal right upper extremity Overall: right wrist benign 01/12/2011 None Full Exam - General Musculoskeletal right upper extremity Overall: full strength in RUE 01/12/2011 None Full Exam - General Musculoskeletal right upper extremity Overall: normal RUE bulk and tone 01/12/2011 None Full Exam - General Musculoskeletal left upper extremity Overall: normal left shoulder 01/12/2011 None Full Exam - General Musculoskeletal left upper extremity Overall: normal left elbow 01/12/2011 None Full Exam - General Musculoskeletal left upper extremity Overall: normal left wrist 01/12/2011 None Full Exam - General Musculoskeletal left upper extremity Overall: full strength in LUE 01/12/2011 None Full Exam - General Musculoskeletal left upper extremity Overall: normal LUE bulk and tone 01/12/2011 None Full Exam - General Musculoskeletal right lower extremity Overall: right knee benign 01/12/2011 None Full Exam - General Musculoskeletal right lower extremity Overall: right ankle benign 01/12/2011 None Full Exam - General Musculoskeletal right lower extremity Overall: right foot benign 01/12/2011 None Full Exam - General Musculoskeletal right lower extremity Overall: full strength in RLE 01/12/2011 None Full Exam - General Musculoskeletal right lower extremity Overall: normal RLE bulk and tone 01/12/2011 None Full Exam - General Musculoskeletal left lower extremity Overall: left knee benign 01/12/2011 None Full Exam - General Musculoskeletal left lower extremity Overall: left ankle benign 01/12/2011 None Full Exam - General Musculoskeletal left lower extremity Overall: left foot benign 01/12/2011 None Full Exam - General Musculoskeletal left lower extremity Overall: full strength in LLE 01/12/2011 None Full Exam - General Musculoskeletal spine, ribs and pelvis Overall: good posture 01/12/2011 None Full Exam - General Musculoskeletal spine, ribs and pelvis Overall: spine benign 01/12/2011 None Full Exam - General Musculoskeletal spine, ribs and pelvis Overall: right hip benign 01/12/2011 None Full Exam - General Musculoskeletal spine, ribs and pelvis Overall: left hip benign 01/12/2011 None Full Exam - General Musculoskeletal gait and station Overall: normal gait 01/12/2011 None Full Exam - General Musculoskeletal gait and station Overall: normal station 01/12/2011 None Full Exam - General Integument inspection of skin Rash/Lesions: papule 01/12/2011 mild acne on face Full Exam - General Psychiatric orientation/consciousness Overall: oriented to person, place and time 01/12/2011 None Procedures Procedure Codes Date URINE CULTURE/ COLON Y COUNT CPT-4: 34509 10/05/2011 URINALYSIS NONAUTO W /O SCOPE CPT-4: 44759 10/05/2011 Vital Signs Date Vital 03/22/2012 Blood Pressure 1: 106/58 Code: 8480-6 BMI: 20.9 Code: 59305-5 Heart Rate 1: 84 bpm Height: 5'6" Respiratory Rate: 20 bpm Temperature: 36.8 (C ) / 98.2 (F) Weight: 130 lbs 12/27/2011 Blood Pressure 1: 118/64 Code: 8480-6 BMI: 21.2 Code: 11516-5 Heart Rate 1: 80 bpm Height: 5'6" Temperature: 36.6 (C ) / 97.8 (F) Weight: 132 lbs 01/12/2011 Blood Pressure 1: 112/62 Code: 8480-6 BMI: 21.6 Code: 36688-7 Heart Rate 1: 72 bpm Height: 5'5" Temperature: 36.8 (C ) / 98.3 (F) Weight: 130 lbs Functional Status No Functional Status data History of Present Illness Symptom Name Status Resu lt Effective Date Notes Annual Checkup Menstrual History last menstrual period 11-27-11 12/27/2011 None Annual Checkup Menstrual History regular menses 12/27/2011 None Annual Checkup Menstrual History normal flow 12/27/2011 None Annual Checkup Control none 12/27/2011 None Annual Checkup Sexual Activity is not sexually active 12/27/2011 None Annual Checkup Lifestyle no history of physical abuse 12/27/2011 None Annual Checkup Lifestyle no history of sexual abuse 12/27/2011 None Annual Checkup Lifestyle no history of verbal abuse 12/27/2011 None Annual Checkup Lifestyle regular seatbelt use 12/27/2011 None Annual Checkup Lifestyle family supportive of relationship 12/27/2011 None Annual Checkup Lifestyle satisfactory school experience 12/27/2011 None Annual Checkup Lifestyle satisfactory peer relationships 12/27/2011 None Annual Checkup Lifestyle normal amount of stress 12/27/2011 None Annual Checkup Nutrition and Exercise normal weight 12/27/2011 None Annual Checkup Nutrition and Exercise regular diet 12/27/2011 None Annual Checkup Nutrition and Exercise moderate exercise 12/27/2011 None Annual Checkup Reproductive System D evelopment normal development 12/27/2011 None Annual Checkup Reproductive System D evelopment normal genitalia 12/27/2011 None Annual Checkup Reproductive System D evelopment normal menarche 12/27/2011 None Annual Checkup Reproductive System D evelopment normal thelarche 12/27/2011 None dysuria Quality burning 10/05/2011 None dysuria Quality constant 10/05/2011 None dysuria Onset and Resolution sudden in onset 10/05/2011 None dysuria Onset of Symptom 2 days ago 10/05/2011 None Advance Directives No Advance Directive data Encounters Encounter Performer Loca tion Codes Date OFFICE/OUTPATIENT SIT EST Diagnosis: TEST-POSITIVE[ICD9: V72.42] Elizabeth ROSENTHAL [facility] CPT-4: 26684 03/22/2012 ([id number]) PREV VISIT E ST AGE 12-17 Diagnosis: ROUTINE CHILD HEALTH EXAM[ICD9: V20.2] Diagnosis: ASTHMA NOS[ICD9: 493.90] Elizabeth SAUCEDA [facility] CPT-4: 27153 12/27/2011 ([id number]) OFFICE/OUTPA TIENT VISIT EST Diagnosis: URINARY TRACT INFECTION[ICD9: 599.0] Elizabeth ROSENTHAL [facility] CPT-4: 67208 10/05/2011 PREV VISIT EST AGE 1 2-17 Diagnosis: ROUTINE CHILD HEALTH EXAM[ICD9: V20.2] Diagnosis: Acne[ICD9: 706.1] Elizabeth SAUCEDA [facility] CPT-4: 95289 01/12/2011 Plan of Care Planned Activity Notes C odes Status Date Visit Plan: Long discussion about k eeping baby, adopting, and --explained that there are risks both medically and emotionally with proceeding with Mom is not supportive of pt keeping baby Discussed going back to [place] and talking to counselor Explained that I do not know any doctor's that perform abortions and therefore cannot recommend anyone for this type of procedure 03/22/2012 [facility]ment: [facility] Sau[facility] [phone] [id number] 03/22/2012 Patient Education: Patient Medication Summary Completed 03/22/2012 Visit Plan: Pt. reports recent epis ode of wheezing last Monday at sports practice. Discussed use of inhaler as necessary. Discussed that when symptoms flare it is advisable to take a daily allergy med (otc is fine) Pt. to notify if symptoms worsen. Pt. "can't remember" when had last episode of racing heartbeat. Instructed to notify parents if symptoms return. Recommended Gardasil and Meningitis vaccine. 12/27/2011 Appointment: Janie Aguilera WPtel: [phone] [place], [place] [id number] 12/27/2011 Patient Education: Patient Medication Summary Completed 12/27/2011 Appointment: Elizabeth Sauceda WPtel: [phone] [place], [place] [id number] [place] [address] 10/05/2011 Patient Education: Patient Medication Summary Completed 10/05/2011 Visit Plan: mild acne. will use Kentrell ocin T and notify if no improvement. Discussed that may add Minocin if symptoms worsen or do not improve. No other concerns. 01/12/2011 Appointment: Janie Aguilera WPtel: [address] [place] [address] [facility] 01/12/2011 Patient Education: Patient Medication Summary Completed 01/12/2011 Instructions Comment . mild acne. will u se Cleocin T and notify if no improvement. Discussed that may add Minocin if symptoms worsen or do not improve. No other concerns. . Long discussion ab out keeping baby, adopting, and --explained that there are risks both medically and emotionally with proceeding with Mom is not supportive of pt keeping baby Discussed going back to [facility] and talking to counselor Explained that I do not know any doctor's that perform abortions and therefore cannot recommend anyone for this type of procedure . Pt. reports recent episode of wheezing last Monday at sports practice. Discussed use of inhaler as necessary. Discussed that when symptoms flare it is advisable to take a daily allergy med (otc is fine) Pt. to notify if symptoms worsen. Pt. "can't remember" when had last episode of racing heartbeat. Instructed to notify parents if symptoms return. Recommended Gardasil and Meningitis vaccine.
--- OUTSIDE RECORDS SUMMARY | 2019-12-25 08:38 | XMS REPORT | Continuity of Care Document ---
Author Organization Unknown Address Unknown Phone Unavailable Allergies Active Description Code Type Severity Reaction Onset Reported/Identified Relationship to Patient Clinical Status Yes No Known Drug Allergies [id number] Drug Allergy Unknown N/A 04/04/2011 Medications There is no data. Problems Date Dx Coded Attending Type Code Diagnosis Diagnosed By 04/04/2011 Ot 920 CONTUS ION FACE/SCALP/NCK 04/04/2011 Ot 959.01 HEA D INJURY, NOS 04/04/2011 Ot E000.8 OTH ER EXTERNAL CAUSE STATUS 04/04/2011 Ot E849.0 ACC IDENT IN HOME 04/04/2011 Ot E888.1 FAL L STRIKING OBJECT NEC 10/10/2013 MEE FELICIANO APRN V03.89 MENINGOCOCCAL DX 11/04/2015 ENIO VILLASENOR MD N Ot O60. 00 LABOR WITHOUT DELIVERY, UNSPECIF 11/04/2015 ENIO VILLASENOR MD N Ot O60. 03 LABOR WITHOUT DELIVERY, THIRD TR 11/04/2015 ENIO VILLASENOR MD N Ot Z3A. 00 WEEKS OF GESTATION OF NOT SPEC 11/04/2015 ENIO VILLASENOR MD Ot Z3A. 36 36 WEEKS GESTATION OF 11/10/2015 ENIO VILLASENOR MD N Ot O60. 00 LABOR WITHOUT DELIVERY, UNSPECIF 11/10/2015 ENIO VILLASENOR MD N Ot Z3A. 00 WEEKS OF GESTATION OF NOT SPEC 11/10/2015 ENIO VILLASENOR MD N Ot O60. 00 LABOR WITHOUT DELIVERY, UNSPECIF 11/10/2015 ENIO VILLASENOR MD N Ot Z3A. 00 WEEKS OF GESTATION OF NOT SPEC 11/10/2015 ENIO VILLASENOR MD N Ot O47. 03 FALSE LABOR BEFORE 37 COMPLETED WEEKS OF 11/10/2015 ENIO VILLASENOR MD N Ot Z3A. 36 36 WEEKS GESTATION OF 11/16/2015 HAMILTON MD, ENIO N Ot O47. 03 FALSE LABOR BEFORE 37 COMPLETED WEEKS OF 11/16/2015 HAMILTON HOGAN, ENIO N Ot Z3A. 36 36 WEEKS GESTATION OF 11/17/2015 DU YANEZ LACEY Woodrow Ot M54.5 LOW BACK PAIN 11/17/2015 DU YANEZ, LACEY C Ot O47.1 FALSE LABOR AT OR AFTER 37 COMPLETED WEE 11/17/2015 DU YANEZANAMARIAA C Ot O99.8 9 OTH DISEASES AND CONDITIONS COMPL PREG/C 11/17/2015 DU YANEZ LACEY C Ot Z3A.3 7 37 WEEKS GESTATION OF 11/18/2015 HAMILTON HOGAN, ENIO N Ot O47. 03 FALSE LABOR BEFORE 37 COMPLETED WEEKS OF 11/18/2015 HAMILTON HOGAN, ENIO N Ot Z3A. 36 36 WEEKS GESTATION OF 11/19/2015 DU YANEZ LACEY C Ot M54.5 LOW BACK PAIN 11/19/2015 DU YANEZ LACEY C Ot O47.1 FALSE LABOR AT OR AFTER 37 COMPLETED WEE 11/19/2015 SANDY LACEY C Ot O99.8 9 OTH DISEASES AND CONDITIONS COMPL PREG/C 11/19/2015 DU YANEZ LACEY C Ot Z3A.3 7 37 WEEKS GESTATION OF 11/28/2015 DU YANEZ LACEY C Ot O69.2XX0 LABOR AND DEL COMP BY [facility] CORD ENTANGLE, 11/28/2015 LACEY SANDY DO Ot Z23 ENCOUNTER FOR IMMUNIZATION 11/28/2015 LACEY SANDY DO Ot Z37.0 SINGLE LIVE 11/28/2015 LACEY SANDY DO Ot Z3A.3 9 39 WEEKS GESTATION OF 12/16/2016 JONEL LANIER DO Ot R10.31 RIGHT LOWER QUADRANT PAIN 12/16/2016 JONEL LANIER DO Ot R59.0 LOCALIZED ENLARGED LYMPH NODES 12/19/2016 JONEL LANIER DO Ot R10.31 RIGHT LOWER QUADRANT PAIN 12/19/2016 JONEL LANIER DO Ot R59.0 LOCALIZED ENLARGED LYMPH NODES 12/21/2016 JONEL LANIER DO Ot R10.31 RIGHT LOWER QUADRANT PAIN 12/21/2016 JONEL LANIER DO Ot R59.0 LOCALIZED ENLARGED LYMPH NODES 12/30/2016 JONEL LANIER DO Sofia Ot R10.31 RIGHT LOWER QUADRANT PAIN 12/30/2016 LANIER DO, JONEL Sofia Ot R59.0 LOCALIZED ENLARGED LYMPH NODES 05/22/2017 LANIER DO, JONEL Sofia Ot R10.31 RIGHT LOWER QUADRANT PAIN 05/22/2017 LANIER DO, JONEL Sofia Ot R59.0 LOCALIZED ENLARGED LYMPH NODES 06/19/2017 LANIER DO, JONEL Sofia Ot R10.31 RIGHT LOWER QUADRANT PAIN 06/19/2017 LANIER DO, JONEL Sofia Ot R59.0 LOCALIZED ENLARGED LYMPH NODES 07/18/2017 LANIER DO, JONEL Sofia Ot R10.31 RIGHT LOWER QUADRANT PAIN 07/18/2017 LANIER DO, JONEL Sofia Ot R59.0 LOCALIZED ENLARGED LYMPH NODES 06/26/2018 LANIER DO, JONEL Sofia Ot R10.31 RIGHT LOWER QUADRANT PAIN 06/26/2018 LANIER DO, JONEL Sofia Ot R59.0 LOCALIZED ENLARGED LYMPH NODES 11/28/2018 LANIER DO, JONEL Black Ot R10.31 RIGHT LOWER QUADRANT PAIN 11/28/2018 LANIER DO, JONEL Sofia Ot R59.0 LOCALIZED ENLARGED LYMPH NODES 11/28/2018 LANIER DO, JONEL Sofia Ot R10.31 RIGHT LOWER QUADRANT PAIN 11/28/2018 LANIER DO, JONEL Sofia Ot R59.0 LOCALIZED ENLARGED LYMPH NODES 11/30/2018 LANIER DO, JONEL Sofia Ot R10.31 RIGHT LOWER QUADRANT PAIN 11/30/2018 LANIER DO, JONEL Sofia Ot R59.0 LOCALIZED ENLARGED LYMPH NODES 04/24/2019 LANIER DO, JONEL Black Ot R10.31 RIGHT LOWER QUADRANT PAIN 04/24/2019 LANIER DO, JONEL Black Ot R59.0 LOCALIZED ENLARGED LYMPH NODES 04/24/2019 LANIER DO, JONEL Sofia Ot R10.31 RIGHT LOWER QUADRANT PAIN 04/24/2019 LANIER DO, JONEL Sofia Ot R59.0 LOCALIZED ENLARGED LYMPH NODES 04/24/2019 LANIER DO, JONEL Black Ot R10.31 RIGHT LOWER QUADRANT PAIN 04/24/2019 LANIER DO, JONEL Black Ot R59.0 LOCALIZED ENLARGED LYMPH NODES 05/31/2019 LANIER DO, JONEL Black Ot R10.31 RIGHT LOWER QUADRANT PAIN 05/31/2019 LANIER DO, JONEL Black Ot R59.0 LOCALIZED ENLARGED LYMPH NODES 06/19/2019 LACEY SANDY DO Ot O46.9 1 ANTEPARTUM HEMORRHAGE, UNSPECIFIED, FIRS 06/19/2019 LACEY SANDY DO Ot Z3A.0 8 8 WEEKS GESTATION OF 07/09/2019 LACEY SANDY DO Ot O46.9 1 ANTEPARTUM HEMORRHAGE, UNSPECIFIED, FIRS 07/09/2019 LACEY SANDY DO Ot Z3A.0 8 8 WEEKS GESTATION OF Procedures Code Description Performed [place] [address]YP DR DIAMOND OF AMNIOTIC FL, THERAP FROM POC 11/26/2015 [id number] DE LIVERY OF PRODUCTS OF CONCEPTION, EXTE 11/26/2015 Results Test Result Range Complete urinalysis with reflex to cultu re - 12/20/19 18:00 Urine color determination YELLOW NRG Urine clarity determination CLEAR NR G Urine pH measurement by test strip 7.0 5-9 Specific gravity of urine by test strip 1.010 1.016-1.022 Urine protein assay by test strip, semi-quantitative TRACE NEGATIVE Urine glucose detection by automated test strip NE GATIVE NEGATIVE Erythrocytes detection in urine sediment by light micr oscopy TRACE-I NEGATIVE Urine ketones detection by automated test strip 1+ NEGATIVE Urine nitrite detection by test strip NEGATIVE NEGATIVE Urine total bilirubin detection by test strip NEGA TIVE NEGATIVE Urine urobilinogen measurement by automated test strip (mass/volume) 0.2 mg/dL < = 1.0 Urine leukocyte esterase detection by dipstick 2+ NEGATIVE Automated urine sediment erythrocyte cou nt by microscopy (number/high power field) [HPF] NRG Automated urine sediment leukocyte count by microscopy (number/high power field) [HPF] NRG Bacteria detection in urine sediment by light microsco py MODERATE NRG Squamous epithelial cells detection in u rine sediment by light microscopy 25-50 NRG Crystals detection in urine sediment by light microsco py NONE NRG Casts detection in urine sediment by light microscopy NONE NRG Mucus detection in urine sediment by light microscopy NEGATIVE NRG Complete urinalysis with reflex to culture YES NRG Urine protein/creatinine mass ratio - 18:00 Urine protein measurement (mass/volume) 29 mg/dL 6-12 Urine creatinine measurement (mass/volume) 30 mg/d L 30-125 Urine protein/creatinine mass ratio 0.97 NRG Bacterial urine culture - 12/20/19 18:00 Bacterial urine culture 3 OR MORE NRG COLONY COUNT 40,000 CFU/ML NRG SUSCEPTIBILITY GRAM POSITIVES, SUGGESTING PROBABLE NRG MRSA SCREEN COLLECTION CONTAMINATION WITH SKIN JOCELYN RA NRG RAPID ID NO SUSCEPTIBILITY PERFORMED N RG Complete blood count (CBC) with automate d white blood cell (WBC) differential - 12/20/19 19:10 Blood leukocytes automated count (number/volume) 11.5 10*3/uL 4.3-11.0 Blood erythrocytes automated count (number/volume) 4.20 10*6/uL 4.35-5.85 Venous blood hemoglobin measurement (mass/volume) 11.0 g/dL 11.5-16.0 Blood hematocrit (volume fraction) 34 % 35-52 Automated erythrocyte mean corpuscular volume 81 [ foz_us] 80-99 Automated erythrocyte mean corpuscular h emoglobin (mass per erythrocyte) 26 pg 25-34 Automated erythrocyte mean corpuscular h emoglobin concentration measurement (mass/volume) 32 g/dL 32-36 Automated erythrocyte distribution width ratio 17. 5 % 10.0- 14.5 Automated blood platelet count (count/volume) 284 10*3/uL 130-400 Automated blood platelet mean volume measurement 10.4 [foz_us] 7.4-10.4 Automated blood neutrophils/100 leukocytes 75 % 42-75 Automated blood lymphocytes/100 leukocytes 17 % 12-44 Blood monocytes/100 leukocytes 6 % 0-12 Automated blood eosinophils/100 leukocytes 2 % 0-10 Automated blood basophils/100 leukocytes 0 % 0-10 Blood neutrophils automated count (number/volume) 8.6 10*3 1.8-7.8 Blood lymphocytes automated count (number/volume) 1.9 10*3 1.0-4.0 Blood monocytes automated count (number/volume) 0. 7 10*3 0.0-1.0 Automated eosinophil count 0.2 10*3/uL 0 .0-0.3 Automated blood basophil count (count/volume) 0.0 10*3/uL 0.0-0.1 Comprehensive metabolic panel - 12/20/19 19:10 Serum or plasma sodium measurement (moles/volume) 138 mmol/L 135-145 Serum or plasma potassium measurement (moles/volume) 3.6 mmol/L 3.6-5.0 Serum or plasma chloride measurement (moles/volume) 109 mmol/L 98-107 Carbon dioxide 21 mmol/L 21-32 Serum or plasma anion gap determination (moles/volume) 8 mmol/L 5-14 Serum or plasma urea nitrogen measurement (mass/volume ) 7 mg/dL 7-18 Serum or plasma creatinine measurement (mass/volume) 0.94 mg/dL 0.60-1.30 Serum or plasma urea nitrogen/creatinine mass ratio 7 NRG Serum or plasma creatinine measurement w ith calculation of estimated glomerular filtration rate > NRG Serum or plasma glucose measurement (mass/volume) 93 mg/dL 70-105 Serum or plasma calcium measurement (mass/volume) 8.7 mg/dL 8.5-10.1 Serum or plasma total bilirubin measurement (mass/volu me) 0.3 mg/dL 0.1-1.0 Serum or plasma alkaline phosphatase [place] surement (enzymatic activity/volume) 118 U/L 40-136 Serum or plasma aspartate aminotransfera se measurement (enzymatic activity/volume) 16 U/L 5-34 Serum or plasma alanine aminotransferase measurement (enzymatic activity/volume) 11 U/L 0-55 Serum or plasma protein measurement (mass/volume) 6.1 g/dL 6.4-8.2 Serum or plasma albumin measurement (mass/volume) 3.0 g/dL 3.2-4.5 CALCIUM CORRECTED 9.5 mg/dL 8.5-10.1 Serum or plasma uric acid measurement (m ass/volume) - 12/20/19 19:10 Serum or plasma uric acid measurement (mass/volume) 7.2 mg/dL 2.6-7.2 [id number] - 12/20/19 19:10 [id number] SPECIMEN AVAILABLE NRG Encounters ACCT No. Visit Date/Time Discharge Status Pt. Type Provider Facility Loc./Unit Complaint [id number] 10/10/2013 09:16:00 10/10/2013 23:59: 59 CLS Outpatient MEE FELICIANO APRN [id number] 06/15/2017 16:00:00 06/15/2017 23:59:5 9 CLS Outpatient TOMAS CALI [facility] [id number] 12/20/2019 17:41:00 020 20:20:00 DIS Outpatient ADAMARIS SILVEIRA DO [facility] PRE ECLAMPSIA,HEADACHE, LIGHT SENSITIVITY [id number] 06/17/2019 10:50:00 020 23:59:59 CLS Outpatient LACEY SANDY DO [facility] RAD VAGINAL BLEEDING AFTER FIRST TRIMESTER [id number] 12/15/2016 15:12:00 017 23:59:59 CLS Outpatient JONEL LANIER DO [facility] RAD RUQ PAIN [id number] 11/26/2015 07:03:00 016 14:40:00 DIS Inpatient LACEY SANDY DO [facility] LDRP INDUCTION [id number] 11/17/2015 21:15:00 016 23:21:00 DIS Outpatient LACEY SANDY DO [facility] CONTRACTIONS [id number] 11/10/2015 19:28:00 016 21:27:00 DIS Outpatient ENIO VILLASENOR MD [facility] BACK PAIN [id number] 11/04/2015 16:40:00 016 21:20:00 DIS Outpatient ENIO VILLASENOR MD [facility] BACK PAIN [id number] 04/04/2011 17:23:00 Document Registration
--- OUTSIDE RECORDS SUMMARY | 2019-12-25 08:38 | XMS REPORT ---
Author Author Risa PEPE Organization [facility] Address [address] [place] [address] Care Team Providers Care Washtub Worker Helper Name Role Phone SHAWN PEPE Unavailable PROBLEMS Type Condition ICD9-CM Code QRU08-DW Code Onset Dates Condition S tatus SNOMED Code Problem MENINGOCOCCAL DX V03.89 Active 235 [id number] ALLERGIES No Information ENCOUNTERS Encounter Location Date Diagnosis [place] [address] [address] [facility] [id number] [address] [place] [phone] May, Visit for TB skin test Z11.1 [place] [address] [address] [facility] [id number] [address] [place] [phone] September, [place] [id number] [facility] [id number] [address] [place] [phone] September, IMMUNIZATIONS No Known Immunizations SOCIAL HISTORY Never Assessed REASON FOR VISIT TB skin test--[facility] PLAN OF CARE Activity Details Follow Up 48-72 hours Reason: VITAL SIGNS MEDICATIONS Unknown Medications RESULTS No Results PROCEDURES Procedure Date Ordered Result Body Site TB INTRADERMAL 2017-06-15 N/A TB INTRADERMAL TEST Jun 15, 2017 INSTRUCTIONS MEDICATIONS ADMINISTERED No Known Medications
--- OUTSIDE RECORDS SUMMARY | 2019-12-25 08:38 | XMS REPORT ---
Author Author Risa Vega Organization [facility] Address [address] [place] [address] Care Team Providers Care Shelver Name Role Phone MEE Vega Unavailable PROBLEMS Type Condition ICD9-CM Code [id number] Code Onset Dates Condition S tatus SNOMED Code Problem MENINGOCOCCAL DX V03.89 Active 235 76365 ALLERGIES No Information ENCOUNTERS Encounter Location Date Diagnosis [place] [address] [phone] Feb, Encounter for immunization Z23 [place] [address] [phone] May, Visit for TB skin test Z11.1 [place] [address] [phone] September, [place] [address] [phone] September, IMMUNIZATIONS No Known Immunizations SOCIAL HISTORY Never Assessed REASON FOR VISIT PLAN OF CARE VITAL SIGNS MEDICATIONS Unknown Medications RESULTS No Results PROCEDURES No Known procedures INSTRUCTIONS MEDICATIONS ADMINISTERED No Known Medications
[2019-12-25] MEDS: D5 LR IV SOLUTION 1,000 ML IV SCH ×2 (09:27→19:34)
[2019-12-25] MEDS: LABETALOL 200 MG (NORMODYNE) TAB PO SCH ×2 (09:27→21:07)
[2019-12-25] MEDS: BETAMETHASONE ACE/NA PHOS 6 MG/ML (CELESTONE SOLUSPAN) IM SCH (09:29)
--- NOTE | 2019-12-25 16:52 | Progress Note ---
Standard Progress Note Progress Notes/Assess & Plan Date Seen by a Provider: Dec 25, 2019 Time Seen by a Provider: 07:55 Progress/Assessment & Plan Patient continues to do well. BP control is fairly good. Patient has not had string of contractions since yesterday and has not required further pain meds since yesterday. Will give regular diet today. Second dose of BMZ given this AM. Will plan for induction this evening with anticipation for vaginal delivery x 2. Vtx/Vtx presentation. NST: Reactive x 2 with rare contractions Vital Sign - Last 24 Hours 12/24/19 12/24/19 12/24/19 12/24/19 16:55 17:15 21:29 22:00 Temp 37.4 36.8 36.5 Pulse 93 100 110 Resp 18 18 18 B/P (MAP) 153/96 (115) 134/87 (103) 140/95 (110) O2 Delivery Room Air Room Air Room Air 12/25/19 12/25/19 12/25/19 12/25/19 00:45 02:40 05:15 08:15 Temp 36.5 36.7 36.2 36.8 Pulse 104 109 116 111 Resp 18 18 18 18 B/P (MAP) 133/88 (103) 129/78 (95) 118/75 (89) 143/98 (113) Pulse Ox 98 O2 Delivery Room Air Room Air Room Air Room Air 12/25/19 12/25/19 10:56 12:55 Pulse 109 103 Resp 18 18 B/P (MAP) 116/72 (87) 135/91 (106) O2 Delivery Room Air Room Air TD BUNEROSTRO DO Dec 25, 2019 4:52 pm
[2019-12-25] MEDS ORDERED: MISOPROSTOL 100 MCG (CYTOTEC) TAB PO NR (19:30)
[2019-12-25] MEDS: CATHETER FLUSH 10 ML SYR IV SCH ×3 (19:51→21:11)
[2019-12-25] MEDS ORDERED: LACTATED RINGERS 1,000 ML IV SCH (20:14)
[2019-12-25] MEDS ORDERED: TERBUTALINE INJ 1 MG/ML (BRETHINE) AMP SC PRN (20:15)
[2019-12-26] VITALS (36 sets, daily range): BP systolic 129–156; BP diastolic 73–99
[2019-12-26] MEDS ORDERED: HYDROmorphone 2 MG/ML VIAL (DILAUDID) IV ONE (01:45)
[2019-12-26] MEDS: D5 LR IV SOLUTION 1,000 ML IV SCH ×2 (03:17→15:06)
[2019-12-26] MEDS: ACETAMINOPHEN 500 MG TAB (TYLENOL) PO PRN ×2 (03:51→12:37)
[2019-12-26] MEDS: CATHETER FLUSH 10 ML SYR IV SCH (05:12)
[2019-12-26] MEDS: MISOPROSTOL 100 MCG (CYTOTEC) TAB PO SCH ×2 (05:12)
--- NOTE | 2019-12-26 08:12 | Progress Note ---
Standard Progress Note Progress Notes/Assess & Plan Date Seen by a Provider: Dec 26, 2019 Time Seen by a Provider: 08:00 Progress/Assessment & Plan Patient doing well this morning, cytotec dosing x 2 overnight. She is 3-4 cm/80/-1. BP stable 140s/90s. Having a headache but managed with tylenol. AROM performed on fetus A, clear fluid noted. Both fht reactive. Contractions q 2-3 min Vital Sign - Last 24 Hours 12/25/19 12/25/19 12/25/19 12/25/19 08:15 10:56 12:55 15:35 Temp 36.8 37.4 Pulse 111 109 103 103 Resp 18 18 18 18 B/P (MAP) 143/98 (113) 116/72 (87) 135/91 (106) 129/87 (101) Pulse Ox 98 O2 Delivery Room Air Room Air Room Air Room Air 12/25/19 12/25/19 12/25/19 12/25/19 18:05 19:33 19:39 20:00 Temp 36.4 Pulse 120 117 120 113 Resp 18 18 18 18 B/P (MAP) 138/83 (101) 144/101 (115) 147/96 (113) 138/87 (104) Pulse Ox 100 O2 Delivery Room Air Room Air Room Air Room Air 12/25/19 12/25/19 12/25/19 12/26/19 21:06 22:00 23:00 00:00 Temp 37.2 Pulse 108 103 120 111 Resp 18 18 18 18 B/P (MAP) 140/95 (110) 141/95 (110) 143/79 (100) 130/84 (99) Pulse Ox 100 O2 Delivery Room Air Room Air Room Air Room Air 12/26/19 12/26/19 12/26/19 12/26/19 01:00 02:00 03:00 04:00 Temp 36.9 Pulse 98 92 105 105 Resp 18 18 18 18 B/P (MAP) 133/80 (97) 135/85 (102) 129/75 (93) 142/88 (106) O2 Delivery Room Air Room Air Room Air Room Air 12/26/19 12/26/19 05:00 06:00 Temp 36.8 Pulse 88 104 Resp 18 18 B/P (MAP) 135/88 (104) 147/94 (111) O2 Delivery Room Air Room Air Intake and Output 12/25/19 12/25/19 12/26/19 15:00 23:00 07:00 Intake Total 1000 ml 1500 ml Balance 1000 ml 1500 ml TD BUENROSTRO DO Dec 26, 2019 08:12
--- NOTE | 2019-12-26 08:31 | NUR ---
anesthesia notified of pt's request for epidural placement.
[2019-12-26] MEDS ORDERED: fentaNYL 2 mcg/ml BUPIVA 0.125 100 ML ONE (09:00)
[2019-12-26] MEDS ORDERED: BUPIVACAINE 0.25% 30 ML (SENSORCAINE) VIAL ONE (09:02)
[2019-12-26] MEDS ORDERED: fentaNYL INJECTION 100 MCG/2 ML AMP ONE (09:03)
--- NOTE | 2019-12-26 09:08 | NUR ---
IRENE Palomo here for epidural placement. Procedure explained, consent reviewed and signed by anesthesia. Questions answered to patient's satisfaction. Time out taken to verify correct patient/procedure. 0911- Patient up to side of bed, assisted into sitting position. Betadine prep done x3 and sterile drape applied. 0916- Local done, see anesthesia record. 0923- Test dose given, see anesthesia record for drug and dosage. Epidural catheter secured in place. Epidural placement complete. 0927- Assisted back into bed, monitors adjusted. Epidural dosed, see anesthesia record. Epidural of Sufenta/Fentanyl @12cc/hr stated per pump. Patient tolerated procedure well.
[2019-12-26] MEDS ORDERED: LACTATED RINGERS 1,000 ML IV SCH (09:50)
[2019-12-26] MEDS ORDERED: NALOXONE 0.4 MG/ML 1 ML (NARCAN) VIAL IV PRN ×2 (10:00)
[2019-12-26] MEDS ORDERED: diphenhydrAMINE 50 MG/ML INJ (BENADRYL) IV PRN (10:00)
[2019-12-26] MEDS ORDERED: ONDANSETRON 4 MG/2 ML (SDV) Z0FRAN IV PRN (10:00)
[2019-12-26] MEDS ORDERED: METOCLOPRAMIDE INJ 10 MG/2 ML (REGLAN) IV PRN (10:00)
[2019-12-26] MEDS ORDERED: EPIDURAL (fentaNYL 2 MCG/ML BUPIVA 0.125%)100 ML BAG EPI PRN (10:00)
[2019-12-26] MEDS: LABETALOL 200 MG (NORMODYNE) TAB PO SCH ×2 (11:13→21:07)
[2019-12-26] MEDS ORDERED: OXYTOCIN PRE-MIX DRIP 1,000 ML IV ONE (11:31)
[2019-12-26] MEDS: OXYTOCIN PRE-MIX DRIP 500 ML IV SCH ×2 (11:56→12:33)
[2019-12-26] MEDS ORDERED: CARBOPROST (HEMABATE) 250 MCG/ML AMP IM ONE ×2 (11:57→15:15)
[2019-12-26] MEDS ORDERED: TETANUS,DIPTH,PERTUSS P/F (BOOSTRIX) 0.5 ML VIAL IM ONE (12:15)
[2019-12-26] MEDS ORDERED: DIBUCAINE (NUPERCAINAL) 1% OINT 30 GM TOP PRN (12:15)
[2019-12-26] MEDS ORDERED: HYDROcodone/APAP 5 MG/325 MG (LORTAB) TAB PO PRN (12:15)
[2019-12-26] MEDS ORDERED: WITCH HAZEL(TUCKS) 40 EA JAR TOP PRN (12:15)
[2019-12-26] MEDS ORDERED: BENZOCAINE/MENTHOL (DERMOPLAST) 60 ML CAN TP PRN (12:15)
[2019-12-26] MEDS ORDERED: MEASLES,MUMPS,RUBELLA 1 EA INJ SQ ONE (12:15)
--- NOTE | 2019-12-26 12:27 | OB Labor & Delivery Record ---
L&D History Date of Service Date of Service: Dec 26, 2019 History Expected Date of Delivery: Jan 23, 2020 Gestational Age in Weeks: 35 Hx : 2 Hx Para: 1 Complications Events: Routine care Operative Indications (Cesarea: N/A-Vaginal Delivery Intrapartal Events: None L&D Stage1 Stage One Onset of Labor - Date: Dec 26, 2019 Monitors and Tracing Monitor Mode: External Heart Rate: 125 Station: 0 Fci Variability: Average (6-10) Presentation: Vertex Vital Signs VS - Last 72 Hours, by Label 12/24/19 12/24/19 12/24/19 12/24/19 05:52 06:02 06:10 07:02 Temp 37.2 37.2 Pulse 98 90 89 82 Resp 18 18 18 18 B/P (MAP) 186/110 (135) 168/110 (129) 172/109 (130) Pulse Ox 0 98 98 98 O2 Delivery Room Air Room Air Room Air Room Air 12/24/19 12/24/19 12/24/19 12/24/19 07:04 07:19 07:35 08:00 Temp 37.2 37.2 Pulse 83 83 90 100 Resp 18 18 18 18 B/P (MAP) 148/93 (111) 140/93 (109) 131/86 (101) Pulse Ox 98 98 98 O2 Delivery Room Air Room Air Room Air Room Air 12/24/19 12/24/19 12/24/19 12/24/19 09:00 09:15 11:15 11:30 Temp 37.0 Pulse 90 88 Resp 18 18 B/P (MAP) 138/94 (109) 136/89 (105) O2 Delivery Room Air Room Air 12/24/19 12/24/19 12/24/19 12/24/19 13:15 15:15 16:55 17:15 Temp 37.3 37.4 Pulse 95 106 93 Resp 18 18 18 B/P (MAP) 142/97 (112) 137/87 (104) 153/96 (115) O2 Delivery Room Air Room Air Room Air 12/24/19 12/24/19 12/25/19 12/25/19 21:29 22:00 00:45 02:40 Temp 36.8 36.5 36.5 36.7 Pulse 100 110 104 109 Resp 18 18 18 18 B/P (MAP) 134/87 (103) 140/95 (110) 133/88 (103) 129/78 (95) O2 Delivery Room Air Room Air Room Air Room Air 12/25/19 12/25/19 12/25/19 12/25/19 05:15 08:15 10:56 12:55 Temp 36.2 36.8 Pulse 116 111 109 103 Resp 18 18 18 18 B/P (MAP) 118/75 (89) 143/98 (113) 116/72 (87) 135/91 (106) Pulse Ox 98 O2 Delivery Room Air Room Air Room Air Room Air 12/25/19 12/25/19 12/25/19 12/25/19 15:35 18:05 19:33 19:39 Temp 37.4 36.4 Pulse 103 120 117 120 Resp 18 18 18 18 B/P (MAP) 129/87 (101) 138/83 (101) 144/101 (115) 147/96 (113) Pulse Ox 100 O2 Delivery Room Air Room Air Room Air Room Air 12/25/19 12/25/19 12/25/19 12/25/19 20:00 21:06 22:00 23:00 Pulse 113 108 103 120 Resp 18 18 18 18 B/P (MAP) 138/87 (104) 140/95 (110) 141/95 (110) 143/79 (100) O2 Delivery Room Air Room Air Room Air Room Air 12/26/19 12/26/19 12/26/19 12/26/19 00:00 01:00 02:00 03:00 Temp 37.2 Pulse 111 98 92 105 Resp 18 18 18 18 B/P (MAP) 130/84 (99) 133/80 (97) 135/85 (102) 129/75 (93) Pulse Ox 100 O2 Delivery Room Air Room Air Room Air Room Air 12/26/19 12/26/19 12/26/19 12/26/19 04:00 05:00 06:00 08:00 Temp 36.9 36.8 36.9 Pulse 105 88 104 109 Resp 18 18 18 18 B/P (MAP) 142/88 (106) 135/88 (104) 147/94 (111) 142/90 (107) O2 Delivery Room Air Room Air Room Air Room Air 7/12/26/19 12/26/19 12/26/19 09:00 09:11 09:20 09:25 Temp 37.2 Pulse 110 122 121 116 Resp 18 18 18 B/P (MAP) 139/90 (106) 148/89 (108) 134/97 (109) 146/90 (108) Pulse Ox 98 97 98 O2 Delivery Room Air Room Air Room Air Room Air 12/26/19 12/26/19 12/26/19 12/26/19 09:30 09:35 09:40 09:45 Pulse 102 103 106 102 Resp 18 18 18 18 B/P (MAP) 139/90 (106) 140/90 (107) 139/87 (104) 144/85 (104) Pulse Ox 97 95 97 O2 Delivery Room Air Room Air Room Air Room Air 12/26/19 12/26/19 12/26/19 12/26/19 09:50 09:55 10:00 10:05 Pulse 104 113 113 103 Resp 18 18 18 18 B/P (MAP) 142/91 (108) 156/99 (118) 135/92 (106) 138/82 (100) Pulse Ox 97 97 97 96 O2 Delivery Room Air Room Air Room Air Room Air 12/26/19 12/26/19 12/26/19 12/26/19 10:10 10:15 10:30 10:45 Pulse 108 104 112 108 Resp 18 18 18 18 B/P (MAP) 139/86 (103) 142/85 (104) 138/91 (107) 149/93 (111) Pulse Ox 97 98 97 97 O2 Delivery Room Air Room Air Room Air Room Air Rupture of Membranes Spontaneous Ruture of Membrane: Yes Amniotic Membrane Rupture Time: 0751 Amniotic Membrane Fluid Desc.: Clear Vaginal Bleeding Description: Normal Show Induction/Anesthesia Epidural Cath Placement - Time: 09 L&D Stage2 Stage Two Stage II Date: Dec 26, 2019 Monitors and Tracing Monitor Mode: External Heart Rate: 125 Position: Right Occiput Anterior Presentation: Vertex Cord Descript/Complications Cord Vessel Description: 3 Vessels Complications Both infants born over intact perineum TOO. both left anterior shoulders. Baby B had a nuchal reduced x 1 at perineum. No lacerations Delivery Type Infant Delivery Method: Spontaneous Vaginal Anterior Shoulder: Left Episiotomy/Perineal Laceration Laceraction(s)/Extensions: Yes Condition of Delivery 1 minute Comment: 8 5 minute Comment: 9 Notes Live male infants apgars 8/9 for both. Weight A 5lbs 12 oz, B 4lbs 10 oz. Condition of Condition of Infant: Living Exam: No Observed Abnormalities Resuscitation Resuscitation: N/A - Spontaneous Resp L&D Stage3 Stage Three Stage III Date: Dec 26, 2019 Pictocin Pitocin Administration Comment: 30 mu wide open at delivery of placenta Hemabate 150 mg given due to residual atony which resolved immediately Placenta Delivery Placenta Delivery: Spontaneous Delivery Summary Summary Estimated blood loss (mL): 450 Attending at delivery: Td Buenrostro DO Condition of Delivery Examined: Cervix Examined, Uterus Explored Post Hemorrhage: No Condition of Mother stable Condition of Infant (s) stable TD BUENROSTRO DO Dec 26, 2019 12:27 pm
--- NOTE | 2019-12-26 13:40 | NUR ---
FF1/u. lt perfecto noted. dante-care offered. pt requesting to use BR. pt transferred to room 312 via w/c with s.o and Twin A @ side. 1345- assisted up to BR. voided without difficulty. pt voices urge to have BM. dante-care instructions reviewed verbalizes understanding.
[2019-12-26] MEDS ORDERED: CATHETER FLUSH 10 ML SYR IV SCH (14:00)
--- NOTE | 2019-12-26 15:56 | NUR ---
report given to DARYL Briceno.
--- NOTE | 2019-12-26 18:00 | NUR ---
Shower set up for pt at this time. Pt to shower independently. IV taped. Addendum: 12/26/19 at 1852 by PJ ARAUJO RN Pt pad leaked onto bed. Linens changed.
[2019-12-26] MEDS: IBUPROFEN 600 MG (MOTRIN) TAB PO SCH (18:19)
--- NOTE | 2019-12-26 19:30 | NUR ---
Pt done pumping at this time, BM taken to nsy, plan of care reviewed.
--- NOTE | 2019-12-26 20:00 | NUR ---
Pt ambulated to nsy to noel with infant.
--- NOTE | 2019-12-26 20:25 | NUR ---
Pt laying in bed on phone. Will return for assessment, vs and PO medications.
[2019-12-26] MEDS: DOCUSATE SODIUM 100 MG (COLACE) CAP PO SCH (21:07)
--- NOTE | 2019-12-26 22:10 | NUR ---
pt sitting in bed with s.o. and . denies needs.
[2019-12-27 00:18] VITALS: BP 119/68
--- NOTE | 2019-12-27 00:18 | NUR ---
Pt aroused for vs, fresh ice water given.
[2019-12-27] MEDS: IBUPROFEN 600 MG (MOTRIN) TAB PO SCH ×4 (00:26→18:56)
--- NOTE | 2019-12-27 02:30 | NUR ---
Pt resting with eyes closed.
[2019-12-27 04:00] VITALS: BP 120/70
[2019-12-27 05:56] LABS: BASOPHILS % (AUTO) 0 % (0-10); EOSINOPHILS % (AUTO) 0 % (0-10); HEMATOCRIT 29 % (35-52); HEMOGLOBIN 8.9 G/DL (11.5-16.0); LYMPHOCYTES # (AUTO) 2.6 X 10^3 (1.0-4.0); LYMPHOCYTES % (AUTO) 13 % (12-44); MEAN CORPUSCULAR HEMOGLOBIN 26 PG (25-34); MEAN CORPUSCULAR HGB CONC 31 G/DL (32-36); MEAN CORPUSCULAR VOLUME 82 FL (80-99); MEAN PLATELET VOLUME 10.6 FL (7.4-10.4); MONOCYTES # (AUTO) 1.5 X 10^3 (0.0-1.0); MONOCYTES % (AUTO) 8 % (0-12); NEUTROPHILS # (AUTO) 15.5 X 10^3 (1.8-7.8); NEUTROPHILS % (AUTO) 79 % (42-75); PLATELET COUNT 241 10^3/uL (130-400); RED CELL DISTRIBUTION WIDTH 17.6 % (10.0-14.5); WHITE BLOOD COUNT 19.6 10^3/uL (4.3-11.0)
--- NOTE | 2019-12-27 07:07 | Anesthesia-Regional Post-Op ---
Regional Patient Condition Mental Status: Alert, Oriented x3 Circulation: Same as Pre-Op Headache: Absent Sensation: Full Recovery Motor Block: Absent Post Op Complications Complications None Follow Up Care/Instructions Patient Instructions None needed. Anesthesia/Patient Condition Patient is doing well, no complaints, stable vital signs, no apparent adverse anesthesia problems. No complications reported per nursing. SASHA CHIANG CRNA Dec 27, 2019 07:07
--- NOTE | 2019-12-27 07:18 | Postpartum Progress Note ---
FLYNN GOODMAN,MED STUDENT 12/27/19 0718: Note Note Day # 1 Subjective: Patient is without complaints. Ambulating, voiding. Tolerating a regular diet without nausea or vomiting. Normal lochia. Pain is well controlled with oral pain medications. Blood pressure trending down. Continue to monitor. Objective: Physical Exam: General - Alert and oriented, no apparent distress Abdomen - Soft, appropriately tender to palpation, non-distended, fundus firm at umbilicus Extremities - no edema, negative German's bilaterally Assessment: Post- twin delivery day # 1, spontaneous vaginal delivery Acute blood loss anemia Pre-eclampsia Plan: Routine care. Encourage breast feeding. Encourage ambulation. Ferrous sulfate supplementation. Plan for discharge tomorrow. Vitals - Labs Vital Signs - I&O Vital Signs Date Time Temp Pulse Resp B/P (MAP) Pulse Ox O2 Delivery O2 Flow Rate FiO2 12/27/19 04:00 37.5 84 16 120/70 (87) 93 Room Air 12/27/19 00:18 37.6 92 18 119/68 (85) 94 Room Air 12/26/19 21:10 36.9 83 18 138/88 (105) Room Air 12/26/19 18:18 36.8 87 18 145/91 (109) Room Air 12/26/19 13:30 89 18 142/88 (106) Room Air 12/26/19 13:15 92 18 143/84 (103) Room Air 12/26/19 13:00 104 18 139/73 (95) Room Air 12/26/19 12:45 112 18 133/73 (93) Room Air 12/26/19 12:30 108 18 146/84 (104) Room Air 12/26/19 12:10 36.9 110 18 144/83 (103) Room Air 12/26/19 11:50 113 18 155/91 (112) Room Air 12/26/19 11:30 126 18 138/95 (109) Room Air 12/26/19 11:15 121 18 145/89 (107) 98 Room Air 12/26/19 11:00 121 18 145/89 (107) 98 Room Air 12/26/19 10:45 108 18 149/93 (111) 97 Room Air 12/26/19 10:30 112 18 138/91 (107) 97 Room Air 12/26/19 10:15 104 18 142/85 (104) 98 Room Air 12/26/19 10:10 108 18 139/86 (103) 97 Room Air 12/26/19 10:05 103 18 138/82 (100) 96 Room Air 12/26/19 10:00 113 18 135/92 (106) 97 Room Air 12/26/19 09:55 113 18 156/99 (118) 97 Room Air 12/26/19 09:50 104 18 142/91 (108) 97 Room Air 12/26/19 09:45 102 18 144/85 (104) 97 Room Air 12/26/19 09:40 106 18 139/87 (104) 95 Room Air 12/26/19 09:35 103 18 140/90 (107) 97 Room Air 12/26/19 09:30 102 18 139/90 (106) Room Air 12/26/19 09:25 37.2 116 18 146/90 (108) 98 Room Air 12/26/19 09:20 121 18 134/97 (109) 97 Room Air 12/26/19 09:11 122 148/89 (108) 98 Room Air 12/26/19 09:00 110 18 139/90 (106) Room Air 12/26/19 08:00 36.9 109 18 142/90 (107) Room Air Labs Laboratory Tests 12/27/19 05:45: White Blood Count 19.6H, Red Blood Count 3.48L, Hemoglobin 8.9L, Hematocrit 29L, Mean Corpuscular Volume 82, Mean Corpuscular Hemoglobin 26, Mean Corpuscular Hemoglobin Concent 31L, Red Cell Distribution Width 17.6H, Platelet Count 241, Mean Platelet Volume 10.6H, Neutrophils (%) (Auto) 79H, Lymphocytes (%) (Auto) 13, Monocytes (%) (Auto) 8, Eosinophils (%) (Auto) 0, Basophils (%) (Auto) 0, Neutrophils # (Auto) 15.5H, Lymphocytes # (Auto) 2.6, Monocytes # (Auto) 1.5H, Eosinophils # (Auto) 0.0, Basophils # (Auto) 0.0 TD BUENROSTRO DO 12/27/19 0730: Note Note Verification and Attestation of Medical Student E/M Service A medical student performed and documented this service in my presence. I reviewed and verified all information documented by the medical student and made modifications to such information, when appropriate. I personally performed the physical exam and medical decision making. Td Buenrostro, Dec 27, 2019,07:30 FLYNN GOODMAN,MED STUDENT Dec 27, 2019 07:18 TD BUENROSTRO DO Dec 27, 2019 07:30
[2019-12-27] MEDS ORDERED: DIBU30OI TOP (07:27)
[2019-12-27] MEDS ORDERED: DCS100C PO (07:27)
[2019-12-27] MEDS ORDERED: HYDR-3812 PO (07:27)
[2019-12-27] MEDS ORDERED: LABE200T7 PO (07:27)
[2019-12-27] MEDS ORDERED: IBUP-844 PO (07:27)
[2019-12-27] MEDS ORDERED: BENZ78AE2 TP (07:27)
--- NOTE | 2019-12-27 07:28 | Discharge Inst-Women's Service ---
Discharge Inst-Women's Serv Depart Medication/Instructions New, Converted or Re-Newed RX: RX on Chart Final Diagnosis PPD 2 NVD Twin gestation Problems Reviewed?: Yes Consults/Follow Up Additional Follow Up: Yes Orders/Referrals Dr. Buenrostro or Sarath in 6 weeks Activity Activity: Activity as Tolerated Driving Instructions: No Driving for 1 Week NO SMOKING: NO SMOKING Nothing Inside Vagina: No Douching, No Girard, No Tampons Diet Discharge Diet: No Restrictions Symptoms to Report to : Bleeding Excessive, Pain Increased, Fever Over 101 Degrees F, Vaginal Bleeding Increase, Questions/Concerns For Any Problems or Questions: Contact Your Physician TD BUENROSTRO DO Dec 27, 2019 07:28
[2019-12-27 08:59] VITALS: BP 154/94
[2019-12-27] MEDS: FERROUS SULF 325 MG (IRON) TAB PO SCH (09:00)
[2019-12-27] MEDS: DOCUSATE SODIUM 100 MG (COLACE) CAP PO SCH ×2 (09:00→21:10)
[2019-12-27] MEDS: LABETALOL 200 MG (NORMODYNE) TAB PO SCH ×2 (09:00→21:11)
[2019-12-27] MEDS: PRENATAL VITAMIN 1 EA TAB PO SCH (09:00)
[2019-12-27 12:15] VITALS: BP 130/78
[2019-12-27 21:10] VITALS: BP 135/84
[2019-12-28] MEDS: IBUPROFEN 600 MG (MOTRIN) TAB PO SCH ×2 (00:30→06:32)
[2019-12-28 04:18] VITALS: BP 149/89
--- NOTE | 2019-12-28 09:52 | Postpartum Progress Note ---
Note Note Day # 2 Subjective: Patient is without complaints. Ambulating, voiding. Tolerating a regular diet without nausea or vomiting. Normal lochia. Pain is well controlled with oral pain medications. . Denies WILKES, Change in vision, CP, SOB. Objective: Physical Exam: General - Alert and oriented, no apparent distress Abdomen - Soft, appropriately tender to palpation, non-distended, fundus firm at umbilicus Extremities - no edema, negative German's bilaterally Assessment: PPD2 Twin Severe PreE- BP stable on labetalol Acute blood loss anemia Plan: Routine care. Encourage breast feeding. Encourage ambulation. Ferrous sulfate supplementation. Plan for discharge today Vitals - Labs Vital Signs - I&O Vital Signs Date Time Temp Pulse Resp B/P (MAP) Pulse Ox O2 Delivery O2 Flow Rate FiO2 12/28/19 04:18 36.8 82 18 149/89 (109) 98 Room Air 12/27/19 21:10 37.0 76 18 135/84 (101) 98 Room Air 12/27/19 12:15 37.2 73 18 130/78 (95) 96 Room Air Labs Microbiology 12/24/19 Urine Culture - Final, Complete Gram Pos Mixed Bacterial Daxa YEAST TD BUENROSTRO DO Dec 28, 2019 09:52
[2019-12-28 10:10] VITALS: BP 142/87
[2019-12-28] MEDS: PRENATAL VITAMIN 1 EA TAB PO SCH (10:10)
[2019-12-28] MEDS: DOCUSATE SODIUM 100 MG (COLACE) CAP PO SCH (10:10)
[2019-12-28] MEDS: FERROUS SULF 325 MG (IRON) TAB PO SCH (10:10)
[2019-12-28] MEDS: LABETALOL 200 MG (NORMODYNE) TAB PO SCH (10:10)
== END 2019-12-28 11:10 | disposition home or self-care (01) | DRG 806 ==
LOC: WSo 05:38 → LDRP 05:40 → WSo 12-25 08:09 → LDRP 12-25 08:09
PROVIDERS: ADMIT Obstetrics & Gynecology; ATTEND Obstetrics & Gynecology
PROC: 10E0XZZ Delivery of Products of Conception, External Approach (ICD-10-PCS; principal; 2019-12-26)
DX: O14.14 Severe pre-eclampsia complicating childbirth (principal); D62 Acute posthemorrhagic anemia; Z37.2 Twins, both liveborn; O30.043 Twin pregnancy, dichorionic/diamniotic, third trimester; O69.81X2 Labor and delivery complicated by cord around neck, without compression, fetus 2; O90.81 Anemia of the puerperium; Z3A.35 35 weeks gestation of pregnancy
CPT/HCPCS: 36415; 76805; 76810; 80053; 81000; 82570; 84156; 84550; 85025; 86850; 86900; 86901; 87088; 99212

== ENCOUNTER 2021-07-10 22:06 | Emergency (ER) | payer BC, MEDICAID ==
[~2021-07-10] VITALS: Ht 170.2 cm; Wt 99.4 kg
[~2021-07-10 22:06] MED LIST changes: +ACHD5005 PO; +BENZ78AE5 TP; +DIBU30OI TOP; +DOCU-239 PO; +IBUP-844 PO; +LABE200T7 PO
[2021-07-10 22:29] LABS: BILIRUBIN,URINE NEGATIVE (NEGATIVE); CLARITY,URINE CLEAR; COLOR,URINE YELLOW; GLUCOSE, URINE (UA) NEGATIVE (NEGATIVE); KETONES,URINE NEGATIVE (NEGATIVE); LEUKOCYTE ESTERASE ,URINE TRACE (NEGATIVE); NITRITE,URINE NEGATIVE (NEGATIVE); PROTEIN,URINE NEGATIVE (NEGATIVE)
[2021-07-10 22:36] LABS: BACTERIA,URINE FEW /HPF
[2021-07-10 23:16] LABS: BASOPHILS # (AUTO) 0.1 10^3/uL (0.0-0.1); BASOPHILS % (AUTO) 0 % (0-10); EOSINOPHILS # (AUTO) 0.7 10^3/uL (0.0-0.3); EOSINOPHILS % (AUTO) 6 % (0-10); HEMATOCRIT 43 % (35-52); LYMPHOCYTES # (AUTO) 2.2 10^3/uL (1.0-4.0); LYMPHOCYTES % (AUTO) 18 % (12-44); MEAN CORPUSCULAR HEMOGLOBIN 28 pg (25-34); MEAN CORPUSCULAR HGB CONC 33 g/dL (32-36); MEAN CORPUSCULAR VOLUME 84 fL (80-99); MEAN PLATELET VOLUME 9.4 fL (9.0-12.2); MONOCYTES # (AUTO) 0.5 10^3/uL (0.0-1.0); MONOCYTES % (AUTO) 5 % (0-12); NEUTROPHILS # (AUTO) 8.4 10^3/uL (1.8-7.8); NEUTROPHILS % (AUTO) 71 % (42-75); PLATELET COUNT 328 10^3/uL (130-400); WHITE BLOOD COUNT 11.8 10^3/uL (4.3-11.0)
[2021-07-10 23:27] LABS: ALBUMIN 4.6 GM/DL (3.2-4.5); CHLORIDE 107 MMOL/L (98-107); POTASSIUM 3.9 MMOL/L (3.6-5.0); SODIUM 140 MMOL/L (135-145)
[2021-07-10 23:28] LABS: AMYLASE 58 U/L (25-125); CALCIUM 9.3 MG/DL (8.5-10.1)
[2021-07-10 23:29] LABS: GLUCOSE 105 MG/DL (70-105); TOTAL PROTEIN 7.8 GM/DL (6.4-8.2)
[2021-07-10 23:30] LABS: CARBON DIOXIDE 19 MMOL/L (21-32)
[2021-07-10 23:31] LABS: BILIRUBIN,TOTAL 0.2 MG/DL (0.1-1.0)
[2021-07-10 23:33] LABS: ALKALINE PHOSPHATASE 98 U/L (40-136); CREATININE SERUM 0.74 MG/DL (0.60-1.30); GFR ESTIMATED 115
[2021-07-10 23:34] LABS: BUN/CREATININE RATIO 12
[2021-07-10 23:36] LABS: ALANINE AMINOTRANSFERASE 32 U/L (0-55); LIPASE 12 U/L (8-78)
--- NOTE | 2021-07-10 23:40 | ED Abdominal Pain ---
General Chief Complaint: Abdominal/GI Problems Stated Complaint: ABD PAIN Nursing Triage Note: INTERMITTANT EPIGASTRIC PAIN AFTER EATING X1 WEEK. Source of Information: Patient History of Present Illness Date Seen by Provider: Jul 10, 2021 Time Seen by Provider: 23:00 Initial Comments PT ARRIVES VIA POV FROM HOME C/O NAUSEA/VOMITING AND EPIGASTRIC PAIN AFTER EATING FOR THE LAST WEEK--HAPPENS ALMOST EVERY TIME AFTER SHE EATS EPISODES LAST 1-2 HOURS EPISODE TONIGHT STARTED AROUND 2029, AND RESOLVED PRIOR TO ARRIVAL PT ATE A SANDWICH WITH SALAMI, CHEDDAR CHEESE AND MAYONNAISE AROUND 2000 TONIGHT. NOTHING ELSE TO EAT AND NOTHING TO DRINK TONIGHT. NO RADIATION OF PAIN PT VOMITED X 2 TONIGHT. NO NAUSEA NOW. NORMAL BM TODAY. NO DIARRHEA NO FEVER. NO URINARY SYMPTOMS NO COUGH OR SHORTNESS OF BREATH NO RECENT ILLNESS HAS NOT SOUGHT CARE UNTIL TONIGHT PAIN TONIGHT WAS WORSE THAN IT HAS BEEN, BUT DID NOT LAST ANY LONGER THAN OTHER EPISODES HAS NOT TAKEN ANYTHING FOR SYMPTOMS AT ANY TIME PT HAS NOT HAD COVID-19 OR FLU VACCINES LMP 1 WEEK AGO. NORMAL. NO CONTROL. NO CHRONIC ILLNESSES NO PRIOR GI OR ABDOMINAL PROBLEMS OR SURGERIES PT DOES NOT TAKE ANY MEDIATIONS BOTH HER MOTHER AND HER SISTER HAVE HAD THEIR GALLBLADDERS REMOVED. PCP: DR. LANIER Allergies and Home Medications Allergies Coded Allergies: No Known Drug Allergies (Unverified , 04/04/11) Patient Home Medication List Home Medication List Reviewed: Yes Hyoscyamine Sulfate (Levsin-Sl) 0.125 Mg Tab.subl, 0.25 MG SL Q4H Prescribed by: ELEAZAR SAEZ on 07/11/21215 Nitrofurantoin Monohyd/M-Cryst (Macrobid 100 mg Capsule) 100 Mg Capsule, 1 TAB PO BID Prescribed by: ELEAZAR SAEZ on 07/11/21216 Ondansetron (Ondansetron Odt) 4 Mg Tab.rapdis, 4 MG PO Q4H Prescribed by: ELEAZAR SAEZ on 07/11/21215 Pantoprazole Sodium (Protonix) 40 Mg Tablet.dr, 40 MG PO DAILY Prescribed by: ELEAZAR SAEZ on 07/11/21215 Discontinued Medications Ascorbate Calcium (Vitamin C) 500 Mg Tablet, 500 MG PO DAILY, (Reported) Discontinued Reason: No Longer Taking Entered as Reported by: ANGELIQUE ASTORGA on 12/20/192005 Last Action: Discontinued Benzocaine/Menthol (Dermoplast Pain Relieving Pearson) 78 Gm Aerosol, 56 ML TP UD PRN for PAIN- SEE INSTRUCTIONS Discontinued Reason: No Longer Taking Prescribed by: TD BUENROSTRO on 12/27/19726 Last Action: Discontinued Butalbit/Acetamin/Caff/Codeine (Fcuiar-Vbnvilmvsag-Elsf-Codein) 1 Each Capsule, 1 EACH PO Q6H Discontinued Reason: No Longer Taking Prescribed by: ANGELIQUE ASTORGA on 12/20/192008 Last Action: Discontinued Dibucaine (Dibucaine) 30 Gm Oint, 0 GM TOP UD PRN for PAIN- SEE INSTRUCTIONS Discontinued Reason: No Longer Taking Prescribed by: TD BUENROSTRO on 12/27/19726 Last Action: Discontinued Docusate Sodium (Dok) 100 Mg Capsule, 100 MG PO BID PRN for CONSTIPATION-1ST LINE Discontinued Reason: No Longer Taking Prescribed by: TD BUENROSTRO on 12/27/19726 Last Action: Discontinued Ferrous Sulfate (Iron) 325 Mg Tablet, 325 MG PO DAILY, (Reported) Discontinued Reason: No Longer Taking Entered as Reported by: MAYITO SHAHID on 11/04/151750 Last Action: Discontinued Hydrocodone/Acetaminophen (Hydrocodone-Acetamin 5-325 mg) 1 Each Tablet, 1 TAB PO Q4H PRN for PAIN-MODERATE (5-7) Discontinued Reason: No Longer Taking Prescribed by: TD BUENROSTRO on 12/27/19726 Last Action: Discontinued Ibuprofen (Ibu) 600 Mg Tablet, 600 MG PO Q6HR Discontinued Reason: No Longer Taking Prescribed by: TD BUENROSTRO on 12/27/19726 Last Action: Discontinued Labetalol HCl (Labetalol HCl) 200 Mg Tablet, 200 MG PO BID Discontinued Reason: No Longer Taking Prescribed by: TD BUENROSTRO on 12/27/19726 Last Action: Discontinued Pnv95/Ferrous Fumarate/FA ( Caplet) 1 Each Tablet, 1 EACH PO DAILY, (Reported) Discontinued Reason: No Longer Taking Entered as Reported by: MAYITO SHAHID on 11/04/151750 Last Action: Discontinued Review of Systems Review of Systems Constitutional: no symptoms reported EENTM: No Symptoms Reported Respiratory: No Symptoms Reported Cardiovascular: No Symptoms Reported Gastrointestinal: See HPI, Abdominal Pain; Denies Constipated, Denies Diarrhea; Nausea, Vomiting Genitourinary: No Symptoms Reported Musculoskeletal: no symptoms reported; No back pain Skin: no symptoms reported Psychiatric/Neurological: No Symptoms Reported Endocrine: No Symptoms Reported Hematologic/Lymphatic: No Symptoms Reported Past Yoilibg-Atjsnr-Mquyhw Hx Patient Social History Tobacco Use?: No Substance use?: No Alcohol Use?: Yes Alcohol Frequency: Rarely Pt feels they are or have been: No Immunizations Up To Date Tetanus Booster (TDap): Unknown PED Vaccines UTD: Yes Influenza Vaccine Up-to-Date: No; Not Current Seasonal Allergies Seasonal Allergies: Yes Past Medical History Surgery/Hospitalization HX: CELIAC DISEASE, PREECLAMPSIA Surgeries: Yes (wisdom teeth extraction) Respiratory: Yes (childhood) Asthma Currently Using CPAP: No Currently Using BIPAP: No Cardiac: No Neurological: No : No Last Menstrual Period: Jul 03, 2021 Reproductive Disorders: No Female Reproductive Disorders: Denies Sexually Transmitted Disease: No HIV/AIDS: No Genitourinary: No Gastrointestinal: No Musculoskeletal: No Endocrine: No HEENT: No Cancer: No Psychosocial: No Integumentary: Yes (alopecia) Blood Disorders: No Adverse Reaction/Blood Tranf: No Family Medical History Arthritis 19 MOTHER Asthma 19 FATHER Diabetes mellitus 19 FATHER Hypertension 19 FATHER Thyroid disease 19 MOTHER Physical Exam Vital Signs Vital Signs - First Documented 07/10/21 07/11/21 22:20 02:20 Temp 36.3 Pulse 97 Resp 16 B/P (MAP) 139/100 (113) Pulse Ox 99 O2 Delivery Room Air Capillary Refill : Less Than 3 Seconds Height/Weight/BMI Height: 5'5.50" Weight: 163lbs. 6.0oz. 74.299801ng; 34.00 BMI Method: General Appearance: WD/WN, no apparent distress, obese, other (DOES NOT APPEAR ILL OR TO BE IN ANY DISCOMFORT OR DISTRESS. SITTING -STYLE) HEENT: PERRL/EOMI; No scleral icterus (R), No scleral icterus (L) Neck: normal inspection Respiratory: normal breath sounds, no respiratory distress, no accessory muscle use Cardiovascular: regular rate, rhythm, no murmur Gastrointestinal: normal bowel sounds, soft, no organomegaly, no pulsatile mass, tenderness (MILD EPIGASTRIC TENDERNESS) Extremities: normal inspection Back: normal inspection, no CVA tenderness Neurologic/Psychiatric: thermocouple tester II-XII nml as tested, no motor/sensory deficits, alert, normal mood/affect, oriented x 3 Skin: normal color, warm/dry Progress/Results/Core Measures Results/Orders Lab Results Laboratory Tests Test 07/10/21 22:20 07/10/21 23:07 Range/Units Urine Color YELLOW Urine Clarity CLEAR Urine pH 7.0 5-9 Urine Specific Anderson 1.025 H 1.016-1.022 Urine Protein NEGATIVE NEGATIVE Urine Glucose (UA) NEGATIVE NEGATIVE Urine Ketones NEGATIVE NEGATIVE Urine Nitrite NEGATIVE NEGATIVE Urine Bilirubin NEGATIVE NEGATIVE Urine Urobilinogen 0.2 < = 1.0 MG/DL Urine Leukocyte Esterase TRACE H NEGATIVE Urine RBC (Auto) NEGATIVE NEGATIVE Urine RBC NONE /HPF Urine WBC 2-5 /HPF Urine Squamous Epithelial Cells 2-5 /HPF Urine Crystals NONE /LPF Urine Bacteria FEW H /HPF Urine Casts NONE /LPF Urine Mucus SMALL H /LPF Urine Culture Indicated YES White Blood Count 11.8 H 4.3-11.0 10^3/uL Red Blood Count 5.09 3.80-5.11 10^6/uL Hemoglobin 14.0 11.5-16.0 g/dL Hematocrit 43 35-52 % Mean Corpuscular Volume 84 80-99 fL Mean Corpuscular Hemoglobin 28 25-34 pg Mean Corpuscular Hemoglobin Concent 33 32-36 g/dL Red Cell Distribution Width 14.4 10.0-14.5 % Platelet Count 328 130-400 10^3/uL Mean Platelet Volume 9.4 9.0-12.2 fL Immature Granulocyte % (Auto) 0 % Neutrophils (%) (Auto) 71 42-75 % Lymphocytes (%) (Auto) 18 12-44 % Monocytes (%) (Auto) 5 0-12 % Eosinophils (%) (Auto) 6 0-10 % Basophils (%) (Auto) 0 0-10 % Neutrophils # (Auto) 8.4 H 1.8-7.8 10^3/uL Lymphocytes # (Auto) 2.2 1.0-4.0 10^3/uL Monocytes # (Auto) 0.5 0.0-1.0 10^3/uL Eosinophils # (Auto) 0.7 H 0.0-0.3 10^3/uL Basophils # (Auto) 0.1 0.0-0.1 10^3/uL Immature Granulocyte # (Auto) 0.0 0.0-0.1 10^3/uL Sodium Level 140 135-145 MMOL/L Potassium Level 3.9 3.6-5.0 MMOL/L Chloride Level 107 98-107 MMOL/L Carbon Dioxide Level 19 L 21-32 MMOL/L Anion Gap 14 5-14 MMOL/L Blood Urea Nitrogen 9 7-18 MG/DL Creatinine 0.74 0.60-1.30 MG/DL Estimat Glomerular Filtration Rate 115 BUN/Creatinine Ratio 12 Glucose Level 105 70-105 MG/DL Calcium Level 9.3 8.5-10.1 MG/DL Corrected Calcium 8.5-10.1 MG/DL Total Bilirubin 0.2 0.1-1.0 MG/DL Aspartate Amino Transf (AST/SGOT) 20 5-34 U/L Alanine Aminotransferase (ALT/SGPT) 32 0-55 U/L Alkaline Phosphatase 98 40-136 U/L Total Protein 7.8 6.4-8.2 GM/DL Albumin 4.6 H 3.2-4.5 GM/DL Amylase Level 58 25-125 U/L Lipase 12 8-78 U/L My Orders Orders - ELEAZAR SAEZ DO Ed Iv/Invasive Line Start (07/10/21 23:03) Amylase (07/10/21 23:03) Cbc With Automated Diff (07/10/21 23:03) Comprehensive Metabolic Panel (07/10/21 23:03) Lipase (07/10/21 23:03) Ct Abdomen/Pelvis W (07/11/21 23:03) Iohexol Injection (Omnipaque 350 Mg/Ml 1 (07/11/21 00:15) Received Contrast (Hold Metformin- Contr (07/11/21 00:15) Ns (Ivpb) (Sodium Chloride 0.9% Ivpb Bag (07/11/21 00:15) Medications Given in ED Current Medications Medications Dose Ordered Sig/Sonia Route Start Time Stop Time Status Last Admin Dose Admin Iohexol 100 ml ONCE ONCE IV 07/11/21 00:15 07/11/21 00:16 DC 07/11/21 00:25 100 ML Sodium Chloride 100 ml ONCE ONCE IV 07/11/21 00:15 07/11/21 00:16 DC 07/11/21 00:25 80 ML Vital Signs/I&O 07/10/21 07/11/21 22:20 02:20 Temp 36.3 36.4 Pulse 97 88 Resp 16 16 B/P (MAP) 139/100 (113) 115/71 Pulse Ox 99 O2 Delivery Room Air Room Air Blood Pressure Mean: 113 Progress Progress Note : Progress Note NO SYMPTOMS OF ANY KIND DURING ER STAY MARKED DELAY IN OBTAINING CT REPORTS. Diagnostic Imaging Comments CT ABDOMEN/PELVIS--NO ACUTE PROCESS, PER [facility] VIA FAX AT 0210 Reviewed: Reviewed by Me Departure Impression Primary Impression: Intermittent epigastric abdominal pain Additional Impression: Urinary tract infection Disposition: HOME, SELF-CARE Condition: Stable Departure-Patient Inst. Decision time for Depature: 02:15 Referrals: MEHRAN BURNETTE WILLIAM J DO (PCP/Family) Primary Care Physician Patient Instructions: Abdominal Pain, Adult ED, Urinary Tract Infection, Adult (DC) Add. Discharge Instructions: CLEAR LIQUIDS--WATER, BROTH, JELLO, GATORADE BRATS DIET--BANANAS, RICE, APPLESAUCE, TOAST, SALTINES FOLLOW UP WITH YOUR FAMILY OR WITH DR. BURNETTE, SURGEON, NEXT WEEK FOR FURTHER CARE All discharge instructions reviewed with patient and/or family. Voiced understanding. Scripts Nitrofurantoin Monohyd/M-Cryst (Macrobid 100 mg Capsule) 100 Mg Capsule 1 TAB PO BID, #20 CAP Prov: ELEAZAR SAEZ DO 07/11/21 Hyoscyamine Sulfate (Levsin-Sl) 0.125 Mg Tab.subl 0.25 MG SL Q4H, #15 TAB Prov: ELEAZAR SAEZ DO 07/11/21 Ondansetron (Ondansetron Odt) 4 Mg Tab.rapdis 4 MG PO Q4H for Nausea/Vomiting, #10 TAB Prov: ELEAZAR SAEZ DO 07/11/21 Pantoprazole Sodium (Protonix) 40 Mg Tablet.dr 40 MG PO DAILY, #15 TAB Prov: ELEAZAR SAEZ DO 07/11/21 ELEAZAR SAEZ DO Jul 10, 2021 23:40
[2021-07-11] MEDS ORDERED: HOLD METFORMIN - RECEIVED CONTRAST 20 ML VIAL IV SCH (00:15)
[2021-07-11] MEDS ORDERED: IOHEXOL 350 MG/ML 100 ML (OMNIPAQUE 350) VIAL IV ONE (00:15)
[2021-07-11] MEDS ORDERED: NS 100 ML (IVPB) BAG IV ONE (00:15)
[2021-07-11] MEDS ORDERED: PANT40TA2 PO (02:16)
[2021-07-11] MEDS ORDERED: ONDA4TAB11 PO (02:16)
[2021-07-11] MEDS ORDERED: HYOS0.1283 SL (02:16)
[2021-07-11] MEDS ORDERED: NITR-65 PO (02:17)
[2021-07-11 02:20] VITALS: BP 115/71
--- NOTE | 2021-07-11 06:06 | Diagnostic Imaging Report ---
PROCEDURE: CT abdomen and pelvis with contrast. TECHNIQUE: Multiple contiguous axial images were obtained through the abdomen and pelvis after administration of intravenous contrast. Auto Exposure Controls were utilized during the CT exam to meet ALARA standards for radiation dose reduction. All CT scans use one or more of the following dose optimizing techniques: automated exposure control, MA and/or KvP adjustment based on patient size and exam type or iterative reconstruction. INDICATION: Epigastric pain COMPARISON: 12/15/2016 FINDINGS: The visualized lung bases are clear. Decreased density is noted throughout the liver. The liver is otherwise unremarkable. The spleen is borderline enlarged measuring just under 14 cm. The adrenal glands are unremarkable. The pancreas is unremarkable. The gallbladder is unremarkable. Early excretion of contrast noted within the bilateral kidneys. The bilateral kidneys and ureters are otherwise unremarkable. No aneurysmal dilatation of the abdominal aorta. The appendix is unremarkable. The urinary bladder is grossly unremarkable. The uterus and adnexal structures are unremarkable for age. No bowel obstruction or pneumatosis. No significant adenopathy, free air, or free fluid. No acute osseous abnormality. IMPRESSION: Borderline splenomegaly without discrete mass lesion. Fatty infiltration of the liver. Additional findings as above. Agree with preliminary interpretation. Dictated by: Dictated on workstation # [id number]
== END 2021-07-11 02:20 | disposition home or self-care (01) ==
LOC: EDUNIT# 22:06 → ER 22:10
DX: N39.0 Urinary tract infection, site not specified (principal); J45.909 Unspecified asthma, uncomplicated; E66.9 Obesity, unspecified; Z68.34 Body mass index [BMI] 34.0-34.9, adult
CPT/HCPCS: 36415; 74177; 80053; 81000; 82150; 83690; 84703; 85025; 87088

== ENCOUNTER → 2021-07-13 | Outpatient (CLI) | payer BC, MEDICAID ==
[~2021-07-13] MED LIST changes: +HYOS0.1283 SL; +NITR-65 PO; +ONDA4TAB11 PO; +PANT40TA2 PO
--- NOTE | 2021-07-13 15:51 | Diagnostic Imaging Report ---
PROCEDURE: US Gallbladder. TECHNIQUE: Multiple real-time grayscale images were obtained over the right upper quadrant in various projections. INDICATION: Right upper quadrant pain. FINDINGS: There are no prior gallbladder ultrasound examinations available for comparison. The recent CT abdomen/pelvis exam of 07/11/2021 failed to show any abnormality of the gallbladder. There was fatty infiltration of the liver as well as borderline splenomegaly noted on the CT exam. On this study, there is no evidence for cholelithiasis or acute cholecystitis, and the common bile duct is not dilated. The liver is prominent measuring 18.9 cm in length. The echogenic appearance of the liver parenchyma does suggest fatty metamorphosis. There may be a focal area of fatty sparing near the mele hepatis. There is no mass involving the liver identified nor is there any sign of any abnormal distention of the biliary tree. The spectral and color flow imaging of the portal vein shows the vein is patent. The right kidney, the aorta, and the inferior vena cava are unremarkable. The pancreas is partially obscured by bowel gas. The spleen and left kidney were not included on this exam. IMPRESSION: 1. There is no acute abnormality of the right upper quadrant. 2. If clinical concern regarding an underlying abnormality of the gallbladder persists and further imaging is desired, then a nuclear medicine hepatobiliary scan would be recommended. 3. 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 Dictated by: Dictated on workstation # [id number]
== END ==
LOC: RAD 15:00
PROVIDERS: ATTEND Internal Medicine
DX: R10.11 Right upper quadrant pain (principal)
CPT/HCPCS: 76705

== ENCOUNTER → 2021-07-15 | Outpatient (CLI) | payer BC, MEDICAID ==
[~2021-07-15] MED LIST changes: +CATHETER FLUSH 10 ML SYR IV PRN
--- NOTE | 2021-07-15 09:43 | Diagnostic Imaging Report ---
INDICATION: Abdominal pain COMPARISON: None Tc-99m Choletec 5.1 mCi IV followed by 8 ounces oral Ensure FINDINGS: The upper abdomen was imaged for 30 minutes with the gamma camera. There is normal appearance of activity in the liver. There is activity in the common duct and gallbladder by 60 minutes. After 30 minutes, the patient received CCK. After 60 minutes of additional imaging, the gallbladder ejection fraction was calculated to be 69% which is normal. IMPRESSION: Normal hepatobiliary study with GBEF of 69%. Dictated by: Dictated on workstation # [id number]
== END ==
LOC: CARD 07:00
PROVIDERS: ATTEND Internal Medicine
DX: R10.11 Right upper quadrant pain (principal)
CPT/HCPCS: 78227; A9537